=== PATIENT | male | born 1935 | race Caucasian/White ===

== ENCOUNTER 2016-02-20 12:21 | Inpatient (IN) | payer OTHER, MEDICAID ==
--- NOTE | 2016-02-20 12:36 | EDPHY ---
H & P HPI/ROS: CHIEF COMPLAINT: Unresponsive, hypoxemic Limitations: pt unable to provide any history HISTORY OF PRESENT ILLNESS: The patient is a 80 y/o male arriving emergently via EMS from [facility] after he became suddenly unresponsive and became hypoxemic en route. He has a history that includes diabetes, hypertension, and CAD and his facility paperwork indicates he is a DNR with comfort measures only. Per EMS, staff reported he was normal this morning but then became acutely unresponsive with a fever of 101.2F. EMS reports he was responsive to painful stimuli only en route. They placed an NPA and NRB to manage hypoxemia, but he desaturated and required BVM en route to maintain SpO2 95%. His systolic BP was around 75 during transport. Upon arrival, patient is breathing spontaneously and able to answer some yes/no questions. He denies pain anywhere. REVIEW OF SYSTEMS: Unobtainable secondary to patient condition. Source: EMS - Medical/Surgical History PMH: PMH includes: 1. Hypothyroidism 2. Hypertension 3. GERD 4. CAD - Plavix 5. Glaucoma 6. Ischemic heart disease 7. Peripheral vascular disease 8. Weakness with frequent falls 9. Anemia 10. Osteoarthritis 11. Diabetes type 2 12. TIA in 2011 13. Hyperlipidemia 14. Neuropathy MOST form shows DNR with comfort measures only. Prior medical records reviewed including admission 05/29/15 for lethargy and facility transfer paperwork. - Social History Additional Social History: Lives at [facility]. Originally from [place]. - Physical Exam Exam: General Appearance: Lethargic, pale Eyes: Pupils equal and round, no conjunctival injection ENT, Mouth: Mucous membranes dry Neck: Normal inspection Respiratory: coarse BS throughout anteriorly Cardiovascular: Regular rate and rhythm Gastrointestinal: Abdomen is soft and non-tender, multiple areas of ecchymosis over the lower abdomen Neurological: A&O to self only, nonfocal exam, PENA, follows some commands, diffusely weak, unable to assess CN Skin: Warm and dry Extremities: no erythema, right BKA Psychiatric: deferred Constitutional: Initial Vital Signs Temperature (C) 37.8 C 02/20/16 12:26 Heart Rate 80 02/20/16 12:26 Respiratory Rate 20 02/20/16 12:26 Blood Pressure 71/39 L 02/20/16 12:26 O2 Sat (%) 96 02/20/16 12:26 O2 Delivery Mode Non-Rebreather Mask O2 (L/minute) 15 Allergies/Adverse Reactions: No Known Allergies Allergy (Verified 12/22/15 17:53) Home Medications: Medication Instructions Recorded Acetaminophen [Tylenol 325mg (*)] 650 mg PO Q6H PRN 02/20/16 Aspirin [Aspirin 81mg (*)] 81 mg PO DAILY 02/20/16 Atorvastatin Calcium [Lipitor 10 10 mg PO HS 02/20/16 mg (*)] Benzocaine/Menthol 15/ [Cepacol 1 ea PO Q4H PRN 02/20/16 Lozenge] Bisacodyl [Dulcolax] 10 mg RC DAILY PRN 02/20/16 Brimonidine/Timolol [Combigan (*)] 1 drops EACHEYE BID 02/20/16 Cilostazol [Pletal (*)] 100 mg PO BID 02/20/16 Clopidogrel Bisulfate [Plavix (*)] 75 mg PO DAILY 02/20/16 Diclofenac Sodium [Voltaren Gel 1 jake TP BID PRN 02/20/16 (*)] Gabapentin [Neurontin 300 MG (*)] 300 mg PO HS 02/20/16 Herbals/Supplements -Info Only 1 ea PO DAILY 02/20/16 Insulin Glargine [Lantus 100 34 units SC DAILY@15 02/20/16 UNITS/ML (*)] Insulin Glargine [Lantus 100 38 units SC DAILY 02/20/16 UNITS/ML (*)] Latanoprost 0.005% [Xalatan 0.005% 1 drops EACHEYE HS 02/20/16 (*)] Levothyroxine [Synthroid 100 mcg 100 mcg PO DAILY06 02/20/16 (*)] Lisinopril [Zestril 5 mg (*)] 5 mg PO DAILY 02/20/16 Multivitamins [Multivitamin (*)] 1 each PO DAILY 02/20/16 Mik/Polymyx B Sulf/Dexameth 1 drops RTEYE HS 02/20/16 [Maxitrol Opht Drops (*)] Omeprazole [Prilosec 20 mg] 20 mg PO DAILY 02/20/16 Ondansetron Odt [Zofran Odt 4 mg 4 - 8 mg PO Q6H PRN 02/20/16 (*)] Simethicone [GAS-X] 80 - 160 mg PO QID PRN 02/20/16 Simethicone [GAS-X] 80 mg PO Q6H PRN 02/20/16 Tamsulosin HCl [Flomax 0.4 MG (*)] 0.4 mg PO HS 02/20/16 guaiFENesin/DEXTROMETHORPHAN 10 ml PO Q6 PRN 02/20/16 [Robitussin Dm Oral Liquid (*)] guaiFENesin/DEXTROMETHORPHAN 30 ml PO Q6H PRN 02/20/16 [Robitussin Dm Oral Liquid (*)] oxyCODONE IR [Oxycodone Ir (*)] 5 mg PO Q4H PRN 02/20/16 oxyCODONE IR [Oxycodone Ir (*)] 10 mg PO Q4H PRN 02/20/16 Medical Decision Making - Diagnostics EKG Interpretation: The 12 lead EKG was interpreted by myself. Sinus rhythm rate 80. See hard copy and/or "tracemaster" electronic copy for interpretation. Imaging: Study: Chest x-ray Indication: Hypoxemic, fever, altered mentation Results: Chest x-ray was obtained. The results of the study are right upper lobe infiltrate. Radiologist report pending. I viewed the images myself on the PACS system. ED Course/Re-evaluation: I met the patient on his arrival. He is obtunded but able to answer yes/no questions and able to tell me his name. Signed DNR form that states comfort measures only. I discussed this with the patient and he states that he would like IV fluids and IV antibiotics. He also states that he would be willing to a central line. He refuses intubation and CPR. Chest x-ray reveals a right upper lobe infiltrate consistent aspiration pneumonia. Occasional coughing on exam 1230: BP 57/42, HR 82, 99% on O2. 1233: Chest x-ray reviewed at bedside shows: right upper lobe pneumonia. 1233: Patient's paperwork shows he is a DNR with comfort measures only. I discussed patient's wishes for treatment. He says he does want antibiotics and medications to manage his blood pressure. He also agrees to a central line if needed. He does not want to be intubated. Case management involved and will attempt to contact next of kin. 2L IV NS, 650mg rectal Tylenol, 4.5gm IV Zosyn, and 750mg IV Levaquin ordered for fever and likely pneumonia. Will place central line if pressure does not improve. Labs sent including CBC, CHEM, PTPTT, lactate. 1304: Current vitals: 104/58, HR 76, SpO2 100% on supplemental O2. Lactic acid is normal. Creatinine is 4.0 - patient is in acute renal failure, most likely secondardy to hypotension and dehydration. Mental status has improved with IV fluids and fever reduction. Consulted with hospitalist service. Dr. Parmar accepts admission to ICU. 1311: Spoke with the patient's son via phone and informed him of patient's condition. 1316: Patient does not meet SIRS criteria. Initial vitals were: 57/42, HR 82, 99 % on NRB, afebrile. WBC is 5.84. In addition initial lactate is normal. Blood pressure has normalized with IV normal saline 2 L. However, he has sepsis clinically. 1333: RN informs me patient had episode of malodorous yellow diarrhea. A sample will be sent for stool culture. The pt is unable to tell me whether he has had diarrhea recently or not. No urinary sx; has not provided a urine sample yet. 1402: Reassessed patient. He is much better and is now talking in full sentences. He is on 2LPM O2 via nasal cannula with SpO2 of 94%. BP 97/44 1433: Patient's pressure has dropped to 80/41. Plan for PICC line, d/w Dr. Ruiz, will place PICC line shortly. Will continue to monitor for need of pressors. Patient's mentation has not changed from previous reevaluation. Repeat lactate ordered and additional 1L IV NS administered (total of 3 liters) . 1445: BP 86/47 1455: to IR for PICC line. d/w Dr. Napier, aware of change in pt status and possible need for pressors if hypotension persists. Repeat lactate 0.6. This patient utilized 45 minutes of critical care time exclusive of unbundled procedures. Differential Diagnosis: Differential diagnosis includes UTI, pyelonephritis, cholecystitis, influenza, cellulitis, intracranial hemorrhage, CVA, overdose. - Data Points Laboratory Results: Laboratory Results 02/20/16 12:30 02/20/16 12:30 Microbiology Results: MICROBIOLOGY 02/20/16 12:39 Urine,Clean Catch Urine Culture - Preliminary Medications Given: Discontinued Medications Acetaminophen (Tylenol Rectal) 650 mg TN EDNOW ONE Stop: 02/20/16 12:40 Last Admin: 02/20/16 13:27 Dose: 650 mg Sodium Chloride (Ns) 1,000 mls @ 0 mls/hr IV ONCE ONE PRN Reason: Wide Open Stop: 02/20/16 12:39 Last Admin: 02/20/16 12:40 Dose: 1,000 mls Sodium Chloride (Ns) 1,000 mls @ 0 mls/hr IV ONCE ONE PRN Reason: Wide Open Stop: 02/20/16 12:40 Last Admin: 02/20/16 12:40 Dose: 1,000 mls Levofloxacin/Dextrose (Levaquin 750 Mg (Premix)) 150 mls @ 100 mls/hr IV EDNOW ONE PRN Reason: Protocol Stop: 02/20/16 14:09 Last Admin: 02/20/16 13:52 Dose: 150 mls Piperacillin/Tazobactam/Dextrose (Zosyn (Premix)) 100 mls @ 200 mls/hr IV EDNOW ONE PRN Reason: Protocol Stop: 02/20/16 13:09 Last Admin: 02/20/16 13:15 Dose: 100 mls Sodium Chloride (Ns) 1,000 mls @ 0 mls/hr IV ONCE ONE PRN Reason: Wide Open Stop: 02/20/16 14:36 Last Admin: 02/20/16 14:44 Dose: 1,000 mls Vancomycin/Sodium Chloride (Vancomycin 1 Gm (Premix)) 250 mls @ 250 mls/hr IV ONCE ONE PRN Reason: Protocol Stop: 02/20/16 17:23 Last Admin: 02/20/16 17:14 Dose: 250 mls Departure - Departure Disposition: [facility] Clinical Impression: Pneumonia Qualifiers: Qualifier Code: (J69.0) Pneumonitis due to inhalation of food and vomit Acute renal failure Qualifiers: Qualifier Code: (N17.9) Acute kidney failure, unspecified Condition: Serious Report Scribed for: Laureen Awad Report Scribed by: Catherine Tello Date of Report: 02/20/16 Time of Report: 12:49 Physician Review and Approval Statement: 02/20/16 12:49 Portions of this note were transcribed by a medical technologist. I personally performed a history, physical exam, medical decision making, and confirmed accuracy of information the transcribed note.
[2016-02-20] MEDS ORDERED: NS 1,000 ML IV ONE ×3 (12:38→14:35)
[2016-02-20] MEDS ORDERED: ACETAMINOPHEN 650 MG SUPP PR ONE (12:39)
--- NOTE | 2016-02-20 12:39 | CPEKG ---
Heart Rate: 80 RR Interval: 750 P-R Interval: 180 QRSD Interval: 66 QT Interval: 392 QTC Interval: 453 P Dixie: 47 QRS Dixie: 14 T Wave Dixie: 85 EKG Severity - NORMAL ECG - EKG Impression: SINUS RHYTHM Electronically Signed By: Laureen Awad 20-Feb-2016 14:31:54
[2016-02-20] MEDS ORDERED: PIPERACILLIN/TAZO 4.5 GM/DEX 100 ML IV ONE (12:40)
[2016-02-20 12:45] LABS: % IMMATURE GRANULYOCYTES 0.5 % (0.0-1.1); ABSOLUTE IMMATURE GRANULOCYTES 0.03 10^3/uL (0.00-0.10); ADD DIFF? NO; ADD MORPH? NO; ADD SCAN? NO; ATYPICAL LYMPHOCYTE FLAG 20 (0-99); FRAGMENT RBC FLAG 0 (0-99); HEMATOCRIT 31.1 % (40.0-51.0); HEMOGLOBIN 10.4 g/dL (13.7-17.5); LEFT SHIFT FLG 0 (0-99); LIPEMIA HEMOLYSIS FLAG 80 (0-99); MEAN CELL HEMOGLOBIN 31.6 pg (27.9-34.1); MEAN CELL HEMOGLOBIN CONCENTR. 33.4 g/dL (32.4-36.7); MEAN CELL VOLUME 94.5 fL (81.5-99.8); MEAN PLATELET VOLUME 9.3 fL (8.7-11.7); PLATELET CLUMPS FLAG 20 (0-99); PLATELET COUNT 215 10^3/uL (150-400); RED BLOOD CELL COUNT 3.29 10^6/uL (4.40-6.38); RED CELL DISTRIBUTION WIDTH 12.4 % (11.5-15.2)
[2016-02-20 13:01] LABS: INR 1.18 (0.83-1.16)
[2016-02-20 13:02] LABS: APTT 36.2 SEC (23.0-38.0)
[2016-02-20 13:07] LABS: ANION GAP 13 mEq/L (8-16); BILIRUBIN,TOTAL 0.5 mg/dL (0.1-1.4); CALCIUM 7.9 mg/dL (8.5-10.4); CARBON DIOXIDE 18 mEq/l (22-31); CHLORIDE 108 mEq/L (97-110); GLOMERULAR FILTRATION RATE 15; GLUCOSE 97 mg/dL (70-100); POTASSIUM 5.7 mEq/L (3.5-5.2); SODIUM 139 mEq/L (134-144)
--- NOTE | 2016-02-20 13:14 | DX ---
PA and Lateral Chest X-Ray 1231 hours History: Unresponsive. Altered mental status. Possible sepsis Findings: Heart size and pulmonary vasculature are normal. There is peribronchial cuffing seen in t he perihilar region and prominence of perihilar interstitial markings. Patchy infiltrate is suspected right upper lobe. There is poor inspiration. Osseous structures are unchanged. There is dense sclero sis associated with the anterior right first rib stable in appearance. Impression: Prominence of perihilar interstitial markings and peribronchial cuffing. Findings are non specific but can be seen with bronchitis, reactive airway disease, or viral process. Possible superimposed patchy infiltrate right upper lobe. Rule out early pneumonia.
[2016-02-20] MEDS ORDERED: ALTEPLASE 2 MG VIAL IVP PRN (14:34)
[2016-02-20 14:41] LABS: ANION GAP 12 mEq/L (8-16); CALCIUM 7.1 mg/dL (8.5-10.4); CARBON DIOXIDE 16 mEq/l (22-31); CHLORIDE 111 mEq/L (97-110); CREATININE 3.6 mg/dL (0.7-1.3); GLOMERULAR FILTRATION RATE 16; GLUCOSE 108 mg/dL (70-100); POTASSIUM 4.8 mEq/L (3.5-5.2); SODIUM 139 mEq/L (134-144)
--- NOTE | 2016-02-20 15:52 | PDGENHP ---
History and Physical History and Physical: Chief Complaint: Altered mental status History of presenting illness: This is a 80 male with history of diabetes mellitus, hyperlipidemia, hypertension, peripheral vascular disease, and recent hospitalization for left calcaneal osteomyelitis who was brought to the emergency department by EMS after to be febrile and unresponsive at [facility] earlier this morning. Per ER report the patient was in his usual health this morning but became acutely unresponsive with a temperature of 101.2degrees. In route to the hospital he was noted to be hypoxemic. Patient began having diarrhea today which is new for him. He tells me he has had a cough for the past few days but denies any shortness of breath. Denies any problems with swallowing or choking on food. In the emergency department he was found to be hypotensive. He subsequently received 3 L of normal saline and appears to be mentating better than when he initially arrived. 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 PHYSICAL EXAM: 02/20/16 14:19 Heart Rate 72 Respiratory 18 Rate O2 Sat (%) 92 Temperature (C) 36.7 C Blood Pressure 81/43 L Mean Arterial 55 L Pressure (MAP) GENERAL: ill appearing, no acute distress HEENT: Head is normocephalic atraumatic, eyes are PERRLA, ears are normal appearing, mucous membranes are moist without lesions CARDIOVASCULAR: Regular rate and rhythm; normal S1 and S2 without murmurs, rubs , clicks, gallops; there is no JVD; there is no lower extremity edema PULMONARY: diminished breath sounds in bilateral bases without rales or rhonchi ; no respiratory distress ; no dullness to percussion ABDOMINAL/GASTROINTESTINAL: Soft, nontender, nondistended with normoactive bowel sounds. There is no guarding or rebound tenderness. GENITOURINARY: No Gooden in place EXTREMITIES: No clubbing, cyanosis, or edema, right BKA NEUROLOGIC: Cranial nerves 2-12 are grossly intact; face symmetric; moves all other extremities; speech is fluent; alert and oriented to person, place, and time SKIN: left heel with open wound as well as a nonblanching sacral pressure ulcer Diagnostics: 02/20/16 02/20/16 02/20/16 12:20 12:30 13:21 WBC 5.84 Hgb 10.4 L Hct 31.1 L Plt Count 215 PT 15.0 INR 1.18 H APTT 36.2 VBG Lactic Acid Sodium Potassium Chloride Carbon Dioxide Anion Gap BUN Creatinine Estimated GFR Glucose Calcium C. difficile Tox (PCR) NEGATIVE 02/20/16 02/20/16 14:15 14:47 WBC Hgb Hct Plt Count PT INR APTT VBG Lactic Acid 0.6 L Sodium 139 Potassium 4.8 Chloride 111 H Carbon Dioxide 16 L Anion Gap 12 BUN 81 H Creatinine 3.6 H Estimated GFR 16 Glucose 108 H Calcium 7.1 L C. difficile Tox (PCR) Imaging: I visualized and personally interpreted the chest x-ray: Impression: Prominence of perihilar interstitial markings and peribronchial cuffing. Findings are nonspecific but can be seen with bronchitis, reactive airway disease, or viral process. Possible superimposed patchy infiltrate right upper lobe. Rule out early pneumonia. 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 We will continue monitor for signs symptoms of severe sepsis or septic shock -will defer further antibiotics to Dr. Brito. Vancomycin 1gm iv ordered x 1 # diarrhea negative for C diff ?norovirus - continue to monitor - trial Imodium # acute kidney injury possibly pre renal given hypotension versus ATN versus other - hold nephrotoxins - renal ultrasound - urinalysis with urine lytes -maint ivf overnight -hold bp meds # left calcaneal ulcer with history of MRSA osteomyelitis and sacral decubitus both present on admission - wound care consult - infectious disease consult # possible sepsis in the setting of hypotension, fever, and history of MRSA osteomyelitis - patient was started on empiric Zosyn and levofloxacin in the emergency department. -will defer further antibiotics to Dr. Brito. Vancomycin 1gm iv ordered x 1 #HTN, chronic - will hold home blood pressure medications in the setting of hypotension #HLD, chronic -continue home management #PVD, chronic -continue home management #hypothyroidism, chronic -continue home management #BPH, chronic - will hold Flomax since it can contribute to hypotension #DM -cont home dose of lantus and monitor for hypoglycemia given ROBERT patient is high risk for VTE and will be treated with prophylactic subcu heparin while in the hospital patient requests to be DNR status
--- NOTE | 2016-02-20 15:55 | IR ---
Imaging Guided Peripherally Inserted Central Catheter History: Pneumonia, hypotension. Technique: Following informed consent, the right arm was prepped and draped in sterile fashion. All e lements of maximal sterile barrier technique including cap, mask, sterile gown, sterile gloves, large sterile sheet, hand hygiene, and 2% chlorhexidine for cutaneous antisepsis, followed. Ultrasound tra nsducer was placed in sterile sleeve and sterile coupling gel was used. Ultrasound evaluation of pote ntial access sites was performed. After successfully identifying a patent vessel of adequate size, 1% Xylocaine was used for local anesthetic. Ultrasound guidance was used to puncture the basilic vein with a 21-gauge needle. 0.018 measuring wire was passed centrally under fluoroscopic control. A skin geeta with scalpel blade was followed by removing the access needle. A 5.5 Chilean peel-away sheath wa s followed by a 5 Chilean double-lumen central catheter , trimmed to 43 cm length. The tip of the cat heter was positioned centrally and the guidewire removed. AP fluoroscopic spot image was obtained in inspiration. The catheter irrigated easily. The hub of the catheter was secured to the skin using a S tatLock adhesive device, and a sterile dressing was applied. Fluoroscopy time in minutes: 0.1 . Estimated exposure in mGy: 4.9 . Findings: The tip of the central catheter terminates at the junction of the superior vena cava and th e right atrium. Impression: 5 Chilean double lumen peripherally inserted central catheter is ready to use. - - - - - - - - - - - - - - - - - - - - - - - - - - - - - - - - - - - - - - - - - (Cross-cutting measures: Current medications were listed in the medical record, including all known prescriptions, [id number] medications, herbal medications, and nutritional supplements. The pat ient does not smoke. )
[2016-02-20] MEDS ORDERED: oxyCODONE IR 5 MG TAB PO PRN (16:11)
[2016-02-20] MEDS ORDERED: ACETAMINOPHEN 325 MG TAB PO PRN (16:11)
[2016-02-20] MEDS ORDERED: SIMETHICONE 80 MG TAB CHEW PO PRN ×2 (16:11)
[2016-02-20] MEDS ORDERED: D50W 25 GM/50 ML SYR IVP PRN (16:19)
[2016-02-20] MEDS ORDERED: VANCOMYCIN HCL/NORMAL SALINE 250 ML IV ONE (16:24)
[2016-02-20] MEDS ORDERED: NS 1,000 ML IV SCH (16:30)
[2016-02-20] MEDS: INSULIN LISPRO 100 UNIT/ML SC SCH (17:24)
--- NOTE | 2016-02-20 17:26 | WOCRNPDOC ---
PETRA Advanced Assessment Note - Skin Integrity Problem, Advanced Assess Left Lateral Heel Surgical Wound/Incision Dressing Type: Allevyn Life Dressing Description: Intact Exudate Amount: Scant Exudate Color: Reddish/Yellow Exudate Characteristic(s): Serosanguinous Integumentary Issue Intervention: Dressing Changed Anju Wound Tissue: Ecchymotic (SDTI noted in adjacent tissues), Macerated ( along wound margins) Anju Wound Swelling: Mild Wound Bed Color: Red Wound Bed Constitution: Smooth Tissue Site Measurement - Head-to-Toe Length X Width X Depth (cm): [id number] Skin Integrity Problem Comment: Patient is known to wound care, and was seen at outpatient clinic for this wound on 02/17. This was a diabetic ulcer which was surgically debrided back in December 2015, with subsequent wound vac placement. Vac was dc'd last month. Wound is presently smooth tissue, w/ no necrosis noted. Due to maceration along margins, I placed Aquacel Ag into wound bed, followed by a foam heel dressing. Left Medial Heel Pressure Injury Dressing Type: Allevyn Life Exudate Amount: None Exudate Characteristic(s): None Integumentary Issue Intervention: Dressing Changed Anju Wound Swelling: Mild Wound Bed Color: Purple Site Odor: None Site Measurement - Head-to-Toe Length X Width X Depth (cm): [id number] Pressure Injury Stage: Deep Tissue Injury (DTI) Pressure Injury Present on Admit: Yes (Present on admission, noted by nursing) Skin Integrity Problem Comment: Area of ecchymosis immediately adjacent to surgical wound on patient's lateral heel, consistent in appearance with suspected deep tissue injury. I assessed this patient on 02/17 at the wound healing center, and at that time there was no ecchymosis noted. Applied protective foam heel dressing to cover both this wound and the surgical wound adjacent to it. Off-loading heel boot applied. Right Medial Buttock Pressure Injury Dressing Type: Open to Air Exudate Amount: None Exudate Characteristic(s): None Integumentary Issue Intervention: Dressing Applied Anju Wound Tissue: Blanching, Intact Anju Wound Swelling: None Wound Bed Color: Purple Site Measurement - Head-to-Toe Length X Width X Depth (cm): [id number] Pressure Injury Stage: Deep Tissue Injury (DTI) Skin Integrity Problem Comment: Dark purple ecchymosis noted on patient's R upper medial buttock. While this location is not directly over a bony prominence , its appearance is consistent w/ a suspected deep tissue injury. Anuj-wound skin presently intact and blanching. Protective dressing applied, and patient off-loaded onto his L side. He is currently on a Sport bed, which is appropriate.
--- NOTE | 2016-02-20 17:27 | PCMIDPN ---
Assessment/Plan: # Sepsis: Unclear etiology, no associated leukocytosis. DDX 1) diarrhea, C diff already negative. Could consider norovirus, less likely food-borne illness such as Salmonella. 2) Urinary source with significant urine retention 3) Pneumonia but Chest x-ray unimpressive and patient is on his baseline O2 requirement although he has had some respiratory symptoms over the last couple days. 4) influenza since patient refused vaccination 5) bacteremia, PICC line removed 2 weeks ago and patient with chronic wound left heel although continues to improve --send influenza PCR nasal swab --send stool sample for culture and norovirus PCR --empirically cover with 1 dose of vancomycin for possible bacteremia --UA and culture as indicated (patient received antibiotics prior to collection) --patient already given 1 dose of vancomycin for possible bacteremia and 1 dose of levofloxacin which would cover for possible urinary source. Will await further information before additional coverage. Due to his renal function will follow vancomycin random levels. Vancomycin will be dosed every 48 hours therefore would not be due for another dose until 02/20. # acute renal failure likely related to sepsis plus urinary retention, renal dose antibiotics as above. 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 He is a 80 yo male with multiple medical problems including diabetes who recently had MRSA, finegoldia osteomyelitis left calcaneus with residual wound status post debridement 12/23/2015 and IV vancomycin through 02/03/2016 . Generally the wound has continued to heal and he is now no longer using a wound VAC. He was noted to have some pressure injury on the medial heel today. (The wound is more on the lateral portion of the heel.) Patient was suddenly found to be nonresponsive and febrile at [facility] today and was urgently transferred to [facility] ER . Initially patient was on non-rebreather with systolics in the 50s but O2 sats are adequate on 2 to 3 L supplementation. Labs demonstrated a normal white count but a creatinine of 3.6. Patient describes a couple days of cough and nasal congestion, some difficulty voiding today, no abdominal pain, and loose stools x1 day. In the emergency room he received a dose of Levaquin 750, Zosyn, and vancomycin 1 g. Myers was placed in the ICU and 600 cc of urine returned. Abdominal ultrasound was performed that shows a distended bladder but no hydronephrosis. Chest x-ray personally reviewed by me Patient refuses influenza vaccination Objective: Vital Signs Temp Pulse Resp BP Pulse Ox 36.6 C 71 14 106/92 H 98 02/20/16 15:30 02/20/16 16:00 02/20/16 16:00 02/20/16 16:00 02/20/16 16:00 Laboratory Results 02/20/16 14:15 02/19/16 02/20/16 02/21/16 05:59 05:59 05:59 Intake Total 3201 Output Total 600 Balance 2601 - Physical Exam General Appearance: alert, no apparent distress, obese, toxic EENT: pale conjunctiva, poor dentition, No thrush Respiratory: lungs clear Neck: supple Cardiac/Chest: regular rate, rhythm Extremities: other (Wound on the left heel is significantly smaller than my last exam a week or so ago, no surrounding erythema but there was a pressure injury on the right medial heel. No cellulitis. Right BKA), No pedal edema Abdomen: non-tender, soft, other (Liquid stool) Male Genitalia: myers, No scrotal edema Rectal: other ( Dark purple ecchymosis noted on patient's R upper medial buttock ) Skin: diaphoresis, pallor Neuro/Psych: alert, normal mood/affect, oriented x 3 - Line/s RUE PICC Lines: No drainage, No erythema - Time Spent With Patient Time Spent with Patient: greater than 35 minutes Time Spent with Patient: Greater than 35 minutes spent on this patients care, greater than 50% of time spent counseling, educating, and coordinating care regarding the above mentioned plan. ICD10 Worksheet Patient Problems: Problems Problem Status Diagnosed Acute renal failure Acute Pneumonia Acute Benign essential hypertension Active Diabetes mellitus type 2 Active Diabetic neuropathy Active Dyslipidemia Active Hypothyroidism Active Fever Acute MRSA (methicillin resistant Staphylococcus aureus) Acute 12/23/15 Muscle weakness Acute Severe anemia Acute
--- NOTE | 2016-02-20 17:32 | US ---
Renal Sonogram Clinical Indications: Evaluate for hydronephrosis. Findings: The right kidney measures 4.7 x 4.5 x 10.6 cm with 1.4 cm cortex. There is no hydronephros is. Left kidney measures 5.0 x 4.1 x 1.1 cm with a 1.8 cm cortex. There is no hydronephrosis. Prevoid bladder volume is 394. Postvoid residual was not performed. Ureteral jets were not visualized . Impression: No evidence of hydronephrosis. Moderately distended bladder. Ureteral jets were not visua lized.
[2016-02-20 18:41] LABS: COLOR YELLOW; LEUKOCYTE ESTERASE,URINE 3+ (NEGATIVE); NITRITE,URINE NEGATIVE (NEGATIVE)
[2016-02-20 19:02] LABS: BACTERIA TRACE /hpf (NONE SEEN); MUCUS TRACE /lpf (NONE-1+); WBC,URINE 50-182 /hpf (0-3); YEAST PRESENT /hpf (NONE SEEN)
[2016-02-20 19:15] LABS: ALBUMIN 2.6 g/dL (3.5-5.0); BILIRUBIN,TOTAL 0.4 mg/dL (0.1-1.4); BILIRUBIN-CONJUGATED 0.4 mg/dL (0.0-0.5); TOTAL PROTEIN 5.3 g/dL (6.3-8.2)
[2016-02-20] MEDS ORDERED: OSELTAMIVIR PHOSPHATE 75 MG CAP PO ONE (21:57)
[2016-02-20] MEDS: ATORVASTATIN CALCIUM 10 MG TAB PO SCH (22:50)
[2016-02-20] MEDS: GABAPENTIN 300 MG CAP PO SCH (22:50)
[2016-02-20] MEDS: OSELTAMIVIR 6 MG/ML UDSYR PO SCH (22:50)
[2016-02-20] MEDS: HEPARIN 5,000 UNIT/0.5 ML SYR SC SCH (22:50)
[2016-02-20] MEDS: CILOSTAZOL 100 MG TAB PO SCH (22:50)
[2016-02-20] MEDS: BRIMONIDINE/TIMOLOL 5 ML OPHT.BTL EACHEYE SCH (22:51)
[2016-02-20] MEDS: LATANOPROST 0.005% 2.5 ML OPHT DROPS EACHEYE SCH (22:51)
[2016-02-20] MEDS: NEO/POLYMYX B SULF/DEXAMETH 5 ML OPHT.BTL RTEYE SCH (22:51)
[2016-02-21 05:05] LABS: % IMMATURE GRANULYOCYTES 0.7 % (0.0-1.1); ABSOLUTE IMMATURE GRANULOCYTES 0.04 10^3/uL (0.00-0.10); ADD DIFF? NO; ADD MORPH? NO; ADD SCAN? NO; ATYPICAL LYMPHOCYTE FLAG 30 (0-99); FRAGMENT RBC FLAG 0 (0-99); HEMOGLOBIN 8.7 g/dL (13.7-17.5); LEFT SHIFT FLG 0 (0-99); LIPEMIA HEMOLYSIS FLAG 80 (0-99); MEAN CELL HEMOGLOBIN 32.1 pg (27.9-34.1); MEAN CELL HEMOGLOBIN CONCENTR. 33.5 g/dL (32.4-36.7); MEAN CELL VOLUME 95.9 fL (81.5-99.8); MEAN PLATELET VOLUME 9.2 fL (8.7-11.7); PLATELET CLUMPS FLAG 0 (0-99); PLATELET COUNT 162 10^3/uL (150-400); RED BLOOD CELL COUNT 2.71 10^6/uL (4.40-6.38); RED CELL DISTRIBUTION WIDTH 12.4 % (11.5-15.2)
[2016-02-21 05:34] LABS: ANION GAP 11 mEq/L (8-16); CALCIUM 7.3 mg/dL (8.5-10.4); CARBON DIOXIDE 17 mEq/l (22-31); CHLORIDE 117 mEq/L (97-110); CREATININE 2.6 mg/dL (0.7-1.3); GLOMERULAR FILTRATION RATE 24; GLUCOSE 84 mg/dL (70-100); POTASSIUM 4.4 mEq/L (3.5-5.2); SODIUM 145 mEq/L (134-144)
[2016-02-21] MEDS: LEVOTHYROXINE 100 MCG TAB PO SCH (06:39)
[2016-02-21] MEDS: HEPARIN 5,000 UNIT/0.5 ML SYR SC SCH ×3 (06:39→20:55)
[2016-02-21] MEDS: INSULIN LISPRO 100 UNIT/ML SC SCH ×3 (08:46→18:25)
[2016-02-21] MEDS: CLOPIDOGREL BISULFATE 75 MG TAB PO SCH (08:51)
[2016-02-21] MEDS: ASPIRIN 81 MG CHEWABLE TAB PO SCH (08:51)
[2016-02-21] MEDS: CILOSTAZOL 100 MG TAB PO SCH ×2 (08:51→20:55)
[2016-02-21] MEDS: MULTIVITAMINS 1 EACH TAB PO SCH (08:51)
[2016-02-21] MEDS: PANTOPRAZOLE SODIUM 40 MG TAB PO SCH (08:51)
[2016-02-21] MEDS: BRIMONIDINE/TIMOLOL 5 ML OPHT.BTL EACHEYE SCH ×2 (08:52→20:54)
[2016-02-21] MEDS ORDERED: NON-FORMULARY NEW DRUG (Omeprazole [Prilosec 20 Mg] 20 MG) PO SCH (09:00)
[2016-02-21] MEDS ORDERED: INSULIN GLARGINE 100 UNITS/ML SYRINGE SC SCH ×3 (09:00→15:00)
--- NOTE | 2016-02-21 09:14 | PCMIDPN ---
Assessment/Plan: Assessment/Plan: 1. Sepsis secondary to Influenza A: -On droplet precautions -Started on Tamiflu renally dosed yesterday -Other: blood cx in progress, pending - will send off urine given quite abnormal, understanding that the specimen from yesterday was likely collected in presence of urinary retention -will check random vanco and given another dose if levels are low, until blood cx are resulted. -Continue therapy 2. Recent MRSA left heel osteomyelitis: -s/p prolonged course of Vancomycine that ended on 02/03/16. -Continue contact precautions. -wound care Meds tamiflu 30mg daily- 02/20/16 s/p vanco x 1 02/20/16 s/p levaquin x 1 - 02/20/16 Subjective: Afebrile. Remains in icu. awake. some cough and nasal drainage. denies sammie sob. Denies abd pain. has c/o diarrhea. Objective: Vital Signs Temp Pulse Resp BP Pulse Ox 37 C 74 20 122/49 H 97 02/21/16 07:47 02/21/16 07:47 02/21/16 07:47 02/21/16 07:47 02/21/16 07:47 Laboratory Results 02/21/16 04:50 02/21/16 04:50 02/20/16 02/21/16 02/22/16 05:59 05:59 05:59 Intake Total 5301 Output Total 1800 Balance 3501 - Physical Exam General Appearance: alert, no apparent distress Respiratory: lungs clear Cardiac/Chest: regular rate, rhythm Extremities: other (RIght bka, left heels with open wound, minimal slough. no surrounding erythema. not boggy at edges. ), No swelling Abdomen: normal bowel sounds, non-tender, soft, No distended Pelvic Exam: myers Skin: No erythema ICD10 Worksheet Patient Problems: Problems Problem Status Diagnosed Acute renal failure Acute Pneumonia Acute Benign essential hypertension Active Diabetes mellitus type 2 Active Diabetic neuropathy Active Dyslipidemia Active Hypothyroidism Active Fever Acute MRSA (methicillin resistant Staphylococcus aureus) Acute 12/23/15 Muscle weakness Acute Severe anemia Acute
[2016-02-21] MEDS ORDERED: VANCOMYCIN 1.25 GM in D5W 250 ML IV ONE (11:30)
[2016-02-21] MEDS ORDERED: D50W 25 GM/50 ML SYR IVP PRN (13:54)
[2016-02-21] MEDS ORDERED: 1/2 NS 1,000 ML IV SCH (14:00)
--- NOTE | 2016-02-21 14:08 | HOSPPROG ---
Hospitalist Progress Note Assessment/Plan: This 80-year-old male with multiple medical problems with hospitalization in December for left calcaneal MRSA osteomyelitis presenting with: # acute encephalopathy - mentation appears to be improving now that he is volume resuscitated. # possible sepsis in the setting of hypotension, fever, and history of MRSA osteomyelitis. GPC's on 1/2 BCx's. -patient was started on empiric Zosyn and levofloxacin in the emergency department. -cont Vancomycin per ID recs # influenza A - cont renally dosed Tamiflu, supportive care # diarrhea negative for C diff ?norovirus - continue to monitor - trial Imodium # acute kidney injury possibly pre renal given hypotension versus ATN, FeNa 1.5 % - Cr down to 2.6 from 4.0 on arrival. -hold nephrotoxins -no hydro on renal ultrasound -cont maint ivf overnight -hold bp meds #DM - some hypoglycemia on home lantus dose, given D50 -decrease lantus dose, cont dose adjusted bolus insulin ac/hs # left calcaneal ulcer with history of MRSA osteomyelitis and sacral decubitus both present on admission - wound care consult - infectious disease consult #HTN, chronic - will hold home blood pressure medications in the setting of hypotension #HLD, chronic -continue home management #PVD, chronic -continue home management #hypothyroidism, chronic -continue home management #BPH, chronic - will hold Flomax since it can contribute to hypotension patient is high risk for VTE and will be treated with prophylactic subcu heparin while in the hospital Subjective: Pt feels better. Denies pain, no complaints other than feeling thirsty. No fevers. Objective: Vital Signs Temp Pulse Resp BP Pulse Ox 36.8 C 71 21 H 118/56 L 99 02/21/16 12:00 02/21/16 12:00 02/21/16 12:00 02/21/16 12:00 02/21/16 12:00 Laboratory Results 02/21/16 04:50 02/21/16 04:50 02/20/16 02/21/16 02/22/16 05:59 05:59 05:59 Intake Total 5301 Output Total 1800 Balance 3501 PT 15.0 SEC (12.0-15.0) 02/20/16 12:20 INR 1.18 (0.83-1.16) H 02/20/16 12:20 - Physical Exam Constitutional: no apparent distress Eyes: PERRL Ears, Nose, Mouth, Throat: moist mucous membranes Cardiovascular: regular rate and rhythym Respiratory: no respiratory distress Gastrointestinal: normoactive bowel sounds, soft, non-tender abdomen Skin: warm Psychiatric: interacting appropriately ICD10 Worksheet Patient Problems: Problems Problem Status Diagnosed Acute renal failure Acute Pneumonia Acute Benign essential hypertension Active Diabetes mellitus type 2 Active Diabetic neuropathy Active Dyslipidemia Active Hypothyroidism Active Fever Acute MRSA (methicillin resistant Staphylococcus aureus) Acute 12/23/15 Muscle weakness Acute Severe anemia Acute
[2016-02-21] MEDS: GABAPENTIN 300 MG CAP PO SCH (20:55)
[2016-02-21] MEDS: LATANOPROST 0.005% 2.5 ML OPHT DROPS EACHEYE SCH (20:55)
[2016-02-21] MEDS: NEO/POLYMYX B SULF/DEXAMETH 5 ML OPHT.BTL RTEYE SCH (20:55)
[2016-02-21] MEDS: ATORVASTATIN CALCIUM 10 MG TAB PO SCH (20:59)
[2016-02-21] MEDS: OSELTAMIVIR 6 MG/ML UDSYR PO SCH (20:59)
[2016-02-22] MEDS: LEVOTHYROXINE 100 MCG TAB PO SCH (06:35)
[2016-02-22] MEDS: HEPARIN 5,000 UNIT/0.5 ML SYR SC SCH ×3 (06:35→20:45)
[2016-02-22 07:11] LABS: % IMMATURE GRANULYOCYTES 0.5 % (0.0-1.1); ABSOLUTE IMMATURE GRANULOCYTES 0.03 10^3/uL (0.00-0.10); ADD DIFF? NO; ADD MORPH? NO; ADD SCAN? NO; ATYPICAL LYMPHOCYTE FLAG 50 (0-99); FRAGMENT RBC FLAG 0 (0-99); HEMATOCRIT 26.8 % (40.0-51.0); HEMOGLOBIN 8.8 g/dL (13.7-17.5); LEFT SHIFT FLG 0 (0-99); LIPEMIA HEMOLYSIS FLAG 80 (0-99); MEAN CELL HEMOGLOBIN CONCENTR. 32.8 g/dL (32.4-36.7); MEAN CELL VOLUME 94.4 fL (81.5-99.8); MEAN PLATELET VOLUME 9.1 fL (8.7-11.7); PLATELET CLUMPS FLAG 20 (0-99); PLATELET COUNT 171 10^3/uL (150-400); RED BLOOD CELL COUNT 2.84 10^6/uL (4.40-6.38); RED CELL DISTRIBUTION WIDTH 12.4 % (11.5-15.2)
[2016-02-22 07:26] LABS: ANION GAP 9 mEq/L (8-16); CALCIUM 7.7 mg/dL (8.5-10.4); CARBON DIOXIDE 19 mEq/l (22-31); CHLORIDE 117 mEq/L (97-110); CREATININE 1.6 mg/dL (0.7-1.3); GLOMERULAR FILTRATION RATE 42; GLUCOSE 41 mg/dL (70-100); SODIUM 145 mEq/L (134-144)
[2016-02-22] MEDS ORDERED: INSULIN GLARGINE 100 UNITS/ML SYRINGE SC SCH ×2 (08:40→09:00)
--- NOTE | 2016-02-22 08:43 | HOSPPROG ---
Hospitalist Progress Note Assessment/Plan: This 80-year-old male with multiple medical problems with hospitalization in December for left calcaneal MRSA osteomyelitis presenting with: # acute encephalopathy - mentation appears to be improving now that he is volume resuscitated. # possible sepsis unlikely. BCxs growing CoNS, likely contaminant. Vanco stopped per ID. # influenza A - cont renally dosed Tamiflu (dose increased with improved renal fxn), cont supportive care # diarrhea negative for C diff ?norovirus - continue to monitor - trial Imodium # acute kidney injury possibly pre renal given hypotension versus ATN, FeNa 1.5 % - Cr down to 1.4 from 4.0 on arrival. -hold nephrotoxins -no hydro on renal ultrasound -cont maint ivf overnight -hold bp meds # hypernatremia / hyperchloremia - change to D5W, recheck bmp this afternoon #DM - hypoglycemic again this am after reduction of lantus doses -further decrease lantus dose, cont dose adjusted bolus insulin ac/hs # left calcaneal ulcer with history of MRSA osteomyelitis and sacral decubitus both present on admission -completed prolonged course of vanco #HTN, chronic - will hold home blood pressure medications in the setting of hypotension #HLD, chronic -continue home management #PVD, chronic -continue home management #hypothyroidism, chronic -continue home management #BPH, chronic - will hold Flomax since it can contribute to hypotension patient is high risk for VTE and will be treated with prophylactic subcu heparin while in the hospital Subjective: Pt feels ok, but a bit symptomatic this am with low bg. Appetite is improved. No fevers. No CP or SOB Objective: Vital Signs Temp Pulse Resp BP Pulse Ox 36.7 C 88 16 181/79 H 92 02/22/16 07:31 02/22/16 07:31 02/22/16 07:31 02/22/16 07:31 02/22/16 07:31 Laboratory Results 02/22/16 06:30 02/22/16 06:30 02/21/16 02/22/16 02/23/16 05:59 05:59 05:59 Intake Total 5301 3142 Output Total 1800 2850 Balance 3501 292 PT 15.0 SEC (12.0-15.0) 02/20/16 12:20 INR 1.18 (0.83-1.16) H 02/20/16 12:20 - Physical Exam Constitutional: no apparent distress Eyes: PERRL Ears, Nose, Mouth, Throat: moist mucous membranes Cardiovascular: regular rate and rhythym Respiratory: no respiratory distress, clear to auscultation Gastrointestinal: normoactive bowel sounds, soft, non-tender abdomen Skin: warm Neurologic: AAOx3 Psychiatric: interacting appropriately ICD10 Worksheet Patient Problems: Problems Problem Status Diagnosed Acute renal failure Acute Pneumonia Acute Benign essential hypertension Active Diabetes mellitus type 2 Active Diabetic neuropathy Active Dyslipidemia Active Hypothyroidism Active Fever Acute MRSA (methicillin resistant Staphylococcus aureus) Acute 12/23/15 Muscle weakness Acute Severe anemia Acute
[2016-02-22] MEDS ORDERED: D5W 1,000 ML IV SCH (08:45)
[2016-02-22] MEDS: INSULIN LISPRO 100 UNIT/ML SC SCH ×3 (09:03→17:09)
[2016-02-22] MEDS: MULTIVITAMINS 1 EACH TAB PO SCH (09:20)
[2016-02-22] MEDS: CLOPIDOGREL BISULFATE 75 MG TAB PO SCH (09:20)
[2016-02-22] MEDS: ASPIRIN 81 MG CHEWABLE TAB PO SCH (09:20)
[2016-02-22] MEDS: PANTOPRAZOLE SODIUM 40 MG TAB PO SCH (09:20)
[2016-02-22] MEDS: BRIMONIDINE/TIMOLOL 5 ML OPHT.BTL EACHEYE SCH ×2 (09:24→20:46)
[2016-02-22] MEDS ORDERED: VANCOMYCIN 1.25 GM in D5W 250 ML IV ONE (09:30)
[2016-02-22] MEDS: INSULIN GLARGINE 100 UNITS/ML SYRINGE SC SCH (10:17)
[2016-02-22] MEDS: OSELTAMIVIR 6 MG/ML UDSYR PO SCH ×2 (11:30→17:59)
[2016-02-22] MEDS: CILOSTAZOL 100 MG TAB PO SCH ×2 (13:09→20:44)
--- NOTE | 2016-02-22 15:26 | PCMIDPN ---
Assessment/Plan: Assessment/Plan: 1. Sepsis secondary to Influenza A: -On droplet precautions -On Tamiflu renally dosed - continue droplet precautions. -Continue therapy 2. CoNs in blood cx: - 1 out of 2 in both set--likely skin contaminant -picc line that is in place is from this admit. -s/p vanco --given empirically while waiting for ID on GPC's. No further vanco at this point. 3. Recent MRSA left heel osteomyelitis: -s/p prolonged course of Vancomycin that ended on 02/03/16. -Continue contact precautions. -wound care 4. Urine cx with Citrobacter: - low colony count-1999. Colonized. No need for treatment Meds tamiflu 30mg daily- 02/20/16---changed to q12 due to improved renal fx s/p vanco x 1 ---02/20/16, 02/21/16, 02/22/16 s/p levaquin x 1 - 02/20/16 Subjective: afebrile. breathing is better. less cough. denies abd pain. loose stool but better. Objective: Vital Signs Temp Pulse Resp BP Pulse Ox 36.7 C 75 14 174/88 H 98 02/22/16 12:00 02/22/16 12:00 02/22/16 12:00 02/22/16 12:00 02/22/16 12:00 Microbiology 02/20/16 13:21 Stool Culture - Final Stool Laboratory Results 02/22/16 06:30 02/22/16 06:30 02/21/16 02/22/16 02/23/16 05:59 05:59 05:59 Intake Total 5301 3142 Output Total 1800 2850 Balance 3501 292 - Physical Exam General Appearance: alert, no apparent distress Respiratory: lungs clear Cardiac/Chest: regular rate, rhythm Extremities: other (right bka), No swelling Abdomen: normal bowel sounds, non-tender, soft, No distended Skin: No rash ICD10 Worksheet Patient Problems: Problems Problem Status Diagnosed Acute renal failure Acute Pneumonia Acute Benign essential hypertension Active Diabetes mellitus type 2 Active Diabetic neuropathy Active Dyslipidemia Active Hypothyroidism Active Fever Acute MRSA (methicillin resistant Staphylococcus aureus) Acute 12/23/15 Muscle weakness Acute Severe anemia Acute
[2016-02-22 17:23] LABS: ANION GAP 10 mEq/L (8-16); CALCIUM 7.5 mg/dL (8.5-10.4); CARBON DIOXIDE 19 mEq/l (22-31); CHLORIDE 114 mEq/L (97-110); CREATININE 1.4 mg/dL (0.7-1.3); GLOMERULAR FILTRATION RATE 49; GLUCOSE 139 mg/dL (70-100); POTASSIUM 4.2 mEq/L (3.5-5.2); SODIUM 143 mEq/L (134-144)
[2016-02-22] MEDS: 1/2 NS 1,000 ML IV SCH (18:25)
[2016-02-22] MEDS: ATORVASTATIN CALCIUM 10 MG TAB PO SCH (20:44)
[2016-02-22] MEDS: GABAPENTIN 300 MG CAP PO SCH (20:45)
[2016-02-22] MEDS: LATANOPROST 0.005% 2.5 ML OPHT DROPS EACHEYE SCH (20:46)
[2016-02-22] MEDS: NEO/POLYMYX B SULF/DEXAMETH 5 ML OPHT.BTL RTEYE SCH (20:46)
[2016-02-23 04:37] LABS: HEMOGLOBIN A1C 6.7 % (4.0-6.0)
[2016-02-23 05:08] LABS: ANION GAP 8 mEq/L (8-16); CALCIUM 7.7 mg/dL (8.5-10.4); CARBON DIOXIDE 22 mEq/l (22-31); CHLORIDE 115 mEq/L (97-110); CREATININE 1.2 mg/dL (0.7-1.3); GLOMERULAR FILTRATION RATE 59; GLUCOSE 91 mg/dL (70-100); POTASSIUM 4.4 mEq/L (3.5-5.2); SODIUM 145 mEq/L (134-144)
[2016-02-23] MEDS ORDERED: guaiFENesin/CODEINE PHOS 10 ML UDCUP PO PRN (05:10)
[2016-02-23] MEDS: HEPARIN 5,000 UNIT/0.5 ML SYR SC SCH ×2 (05:48→14:55)
[2016-02-23] MEDS: LEVOTHYROXINE 100 MCG TAB PO SCH (05:49)
[2016-02-23] MEDS: 1/2 NS 1,000 ML IV SCH (06:49)
[2016-02-23 08:09] VITALS: RESP 20; O2SAT 95
--- NOTE | 2016-02-23 08:31 | PDIAF ---
- Diagnosis Diagnosis: Influenza Code Status: Full Code - Medication Management Discharge Medications: Medications to Continue on Transfer Acetaminophen [Tylenol 325mg (*)] 650 mg PO Q6H PRN 02/20/16 [Last Taken Unknown ] Aspirin [Aspirin 81mg (*)] 81 mg PO DAILY 02/20/16 [Last Taken Unknown] Atorvastatin Calcium [Lipitor 10 mg (*)] 10 mg PO HS 02/20/16 [Last Taken Unknown] Benzocaine/Menthol 15/4 [Cepacol Lozenge] 1 ea PO Q4H PRN 02/20/16 [Last Taken Unknown] Bisacodyl [Dulcolax] 10 mg RC DAILY PRN 02/20/16 [Last Taken Unknown] Brimonidine/Timolol [Combigan (*)] 1 drops EACHEYE BID 02/20/16 [Last Taken Unknown] Cilostazol [Pletal (*)] 100 mg PO BID 02/20/16 [Last Taken Unknown] Clopidogrel Bisulfate [Plavix (*)] 75 mg PO DAILY 02/20/16 [Last Taken Unknown] Diclofenac Sodium [Voltaren Gel (*)] 1 jake TP BID PRN 02/20/16 [Last Taken Unknown] Gabapentin [Neurontin 300 MG (*)] 300 mg PO HS 02/20/16 [Last Taken Unknown] Herbals/Supplements -Info Only 1 ea PO DAILY 02/20/16 [Last Taken Unknown] Latanoprost 0.005% [Xalatan 0.005% (*)] 1 drops EACHEYE HS 02/20/16 [Last Taken Unknown] Levothyroxine [Synthroid 100 mcg (*)] 100 mcg PO DAILY06 02/20/16 [Last Taken Unknown] Lisinopril [Zestril 5 mg (*)] 5 mg PO DAILY 02/20/16 [Last Taken Unknown] Multivitamins [Multivitamin (*)] 1 each PO DAILY 02/20/16 [Last Taken Unknown] Mik/Polymyx B Sulf/Dexameth [Maxitrol Opht Drops (*)] 1 drops RTEYE HS 02/20/16 [Last Taken Unknown] Omeprazole [Prilosec 20 mg] 20 mg PO DAILY 02/20/16 [Last Taken Unknown] Ondansetron Odt [Zofran Odt 4 mg (*)] 4 - 8 mg PO Q6H PRN 02/20/16 [Last Taken Unknown] Simethicone [GAS-X] 80 - 160 mg PO QID PRN 02/20/16 [Last Taken Unknown] Simethicone [GAS-X] 80 mg PO Q6H PRN 02/20/16 [Last Taken Unknown] Tamsulosin HCl [Flomax 0.4 MG (*)] 0.4 mg PO HS 02/20/16 [Last Taken Unknown] guaiFENesin/DEXTROMETHORPHAN [Robitussin Dm Oral Liquid (*)] 10 ml PO Q6 PRN 07/31 [Last Taken Unknown] guaiFENesin/DEXTROMETHORPHAN [Robitussin Dm Oral Liquid (*)] 30 ml PO Q6H PRN [Last Taken Unknown] oxyCODONE IR [Oxycodone Ir (*)] 5 mg PO Q4H PRN 02/20/16 [Last Taken Unknown] Insulin Glargine [Lantus 100 UNITS/ML (*)] 12 units SC DAILY #0 ml 02/23/16 [ Last Taken Unknown] Insulin Glargine [Lantus 100 UNITS/ML (*)] 12 units SC DAILY@15 #0 ml 02/23/16 [ Last Taken Unknown] Oseltamivir Phosphate [Tamiflu Oral Suspension] 30 mg PO BIDMEAL #4 ml 02/23/16 [Last Taken Unknown] Discharge Medications: Refer to the Discharge Home Medication list for PRN reason. PICC Care - Routine: N/A - Orders Services needed: Registered Nurse, Physical Therapy, Occupational Therapy Diet Recommendation: ADA 2000 consistent carb Activity/Weight Bearing Restrictions: As tolerated Additional: Low blood sugars in the hospital, required significant decrease in insulin dose. May need to up-titrate. - Labs/Radiology BMP Date: 02/25/16 - Follow Up Care Current Providers and Referrals: NONE *PRIMARY CARE P,. [Primary Care Provider] - As per Instructions
[2016-02-23] MEDS: INSULIN LISPRO 100 UNIT/ML SC SCH ×2 (08:46→14:39)
[2016-02-23] MEDS ORDERED: LISINOPRIL 5 MG TAB PO SCH (09:00)
[2016-02-23] MEDS: ASPIRIN 81 MG CHEWABLE TAB PO SCH (09:23)
[2016-02-23] MEDS: OSELTAMIVIR 6 MG/ML UDSYR PO SCH (09:23)
[2016-02-23] MEDS: MULTIVITAMINS 1 EACH TAB PO SCH (09:23)
[2016-02-23] MEDS: CILOSTAZOL 100 MG TAB PO SCH (09:23)
[2016-02-23] MEDS: PANTOPRAZOLE SODIUM 40 MG TAB PO SCH (09:23)
[2016-02-23] MEDS: CLOPIDOGREL BISULFATE 75 MG TAB PO SCH (09:23)
[2016-02-23] MEDS: BRIMONIDINE/TIMOLOL 5 ML OPHT.BTL EACHEYE SCH (09:26)
[2016-02-23] MEDS: INSULIN GLARGINE 100 UNITS/ML SYRINGE SC SCH (09:26)
[2016-02-23 11:09] VITALS: BP 143/85; PULSE 73; TEMP 97.9
--- NOTE | 2016-02-23 21:55 | GDS ---
[f rep st] DISCHARGE SUMMARY DISCHARGE DIAGNOSES: 1. Influenza A. 2. Acute kidney injury, resolved. 3. Acute encephalopathy, resolved. 4. Diabetes mellitus. 5. Left calcaneal ulcer. 6. History of methicillin-resistant Staphylococcus aureus osteomyelitis status post prolonged course of vancomycin. 7. Hypertension. CONSULTANTS: Infectious Disease, Dr. Srinivas Alexander. HISTORY: For details please see the dictated history and physical dated February [address] Didier prince In brief, the patient is a 80-year-old male with a history of diabetes, hypertension and peripher al vascular disease, with a recent hospitalization for left calcaneal osteomyelitis. He came to the Emergency Department after being found febrile and unresponsive at [facility]. He was admitted to [facility] for further evaluation. HOSPITAL COURSE: Given his presenting symptoms of fever and hypotension, sepsis was considered. He was volume resuscitated and his influenza swab was positive. He was started on renally-dosed Tamiflu , as he presented with acute kidney injury, which was likely prerenal. His creatinine has normalized at the time of discharge. He had a normal renal ultrasound. He initially had diarrhea, which was C lostridium difficile negative and this resolved. Given an initial concern for possible sepsis, he wa s started empirically on Zosyn and Levaquin. Vancomycin was ordered when his initial set of blood cu ltures revealed gram-positive cocci. He ultimately grew coagulase-negative Staphylococcus and Staphy lococcus epidermides in his preliminary blood cultures. Repeat blood cultures on February 21 remaine d negative to date. His urine culture grew Citrobacter with a very low colony count of just 2000 and he had no significant urinary symptoms. His condition improved and antibiotics were discontinued. DISPOSITION: [facility]. FOLLOWUP: Primary care physician as needed. DISCHARGE MEDICATIONS: Please see [id number] for complete updated outpatient medication list. New medications on discharge include Tamiflu 30 mg p.o. b.i.d. (#4, no refills) to complete 2 more da ys for a total of a 5-day treatment course. Changed medications: The patient required much lower insulin doses during this hospitalization and h ad low blood sugars requiring decreased Lantus doses. On the day of discharge, he received just 12 u nits of Lantus during the day and he is discharged home on a lower dose of 12 units b.i.d. This may need to be up-titrated as his appetite improves. /[id number]/MODL
== END 2016-02-23 15:44 | DRG 193 ==
LOC: EDUNIT# → F2N 15:27 → F3E 02-22 02:14
PROVIDERS: ADMIT Family Medicine; ATTEND Family Medicine
PROC: 02HV33Z Insertion of Infusion Device into Superior Vena Cava, Percutaneous Approach (ICD-10-PCS; principal; 2016-02-20)
DX: J10.1 Influenza due to other identified influenza virus with other respiratory manifestations (principal); G93.49 Other encephalopathy; N17.9 Acute kidney failure, unspecified; E11.9 Type 2 diabetes mellitus without complications; I10 Essential (primary) hypertension; I25.10 Atherosclerotic heart disease of native coronary artery without angina pectoris; E03.9 Hypothyroidism, unspecified; K21.9 Gastro-esophageal reflux disease without esophagitis; H40.9 Unspecified glaucoma; I73.9 Peripheral vascular disease, unspecified; R29.6 Repeated falls; D64.9 Anemia, unspecified; E78.5 Hyperlipidemia, unspecified; L89.629 Pressure ulcer of left heel, unspecified stage; N40.0 Benign prostatic hyperplasia without lower urinary tract symptoms; Z66 Do not resuscitate; Z51.5 Encounter for palliative care; Z89.511 Acquired absence of right leg below knee; Z86.14 Personal history of Methicillin resistant Staphylococcus aureus infection; Z86.73 Personal history of transient ischemic attack (TIA), and cerebral infarction without residual deficits
CPT/HCPCS: 96365; 96366; 97162-GP; 97166-GO; 97530-GO; 97530-GP; C1751; G8978-GP-CM; G8979-GP-CK; G8987-GO-CL; G8988-GO-CL; J1815; J1956; J2543; J3370

== ENCOUNTER → 2016-05-25 | Outpatient (CLI) | payer OTHER, MEDICAID ==
[~2016-05-25] MED LIST: GADOBUTROL 10 ML VIAL IVP ONE
[2016-05-25 14:01] LABS: CREATININE 1.9 mg/dL (0.7-1.3)
== END ==
LOC: FIMAGING 12:58
PROVIDERS: ATTEND Radiology Diagnostic Radiology
DX: M86.172 Other acute osteomyelitis, left ankle and foot (principal)
CPT/HCPCS: 73723; A9585

== ENCOUNTER 2016-06-04 11:32 | Inpatient (IN) | payer OTHER, MEDICAID ==
[~2016-06-04 11:32] MED LIST changes: +BUPIVACAINE 0.5% 30 ML SDV ONE; -GADOBUTROL 10 ML VIAL IVP ONE
[2016-06-04] MEDS ORDERED: ROCURONIUM 50 MG/5 ML VIAL ONE (12:38)
[2016-06-04] MEDS ORDERED: fentaNYL 250 MCG/5 ML INJ ONE (12:39)
[2016-06-04] MEDS ORDERED: PROPOFOL 200 MG/20 ML VIAL ONE (12:39)
[2016-06-04 12:48] LABS: ANION GAP 10 mEq/L (8-16); CALCIUM 8.8 mg/dL (8.5-10.4); CARBON DIOXIDE 21 mEq/l (22-31); CHLORIDE 109 mEq/L (97-110); CREATININE 1.7 mg/dL (0.7-1.3); GLOMERULAR FILTRATION RATE 39; GLUCOSE 178 mg/dL (70-100); POTASSIUM 5.1 mEq/L (3.5-5.2); SODIUM 140 mEq/L (134-144)
[2016-06-04] MEDS ORDERED: LIDOCAINE 1% 5 ML SDV ID PRN (12:53)
[2016-06-04] MEDS ORDERED: LR 1,000 ML IV ONE (12:53)
[2016-06-04] MEDS ORDERED: LIDOCAINE 2% 5 ML SDV ONE (13:22)
[2016-06-04] MEDS ORDERED: epHEDrine SULFATE 10 MG/ML SYR ONE (13:23)
[2016-06-04] MEDS ORDERED: PHENYLEPHRINE HCL 100 MCG/ML SYR ONE (13:23)
--- NOTE | 2016-06-04 14:10 | POSTOPPROG ---
Post Op Note Date of Operation: 06/04/16 Surgeon: Francesco Jo Set Up Inspector: none Anesthesia: GET(General Endotracheal) Pre-op Diagnosis: left diabetic heel ulcer osteomylitis Post-op Diagnosis: same Indication: above Procedure: I and D with vac placement Findings: infectino Inf/Abcess present in the surg proc area at time of surgery?: Yes Depth: Deep Incisional (Fascial) EBL: 50-100 Drains: Wound Vac
[2016-06-04] MEDS ORDERED: CYCLOBENZAPRINE 10 MG TAB PO PRN (14:11)
[2016-06-04] MEDS ORDERED: oxyCODONE IR 5 MG TAB PO PRN (14:11)
[2016-06-04] MEDS ORDERED: METOCLOPRAMIDE 10 MG/2 ML VIAL IVP PRN (14:11)
[2016-06-04] MEDS ORDERED: PROMETHAZINE HCL 25 MG SUPPR PR PRN (14:11)
[2016-06-04] MEDS ORDERED: diphenhydrAMINE 25 MG CAP PO PRN (14:11)
[2016-06-04] MEDS ORDERED: ONDANSETRON 4 MG/2 ML VIAL IVP PRN (14:11)
[2016-06-04] MEDS ORDERED: TEMAZEPAM 15 MG CAP PO PRN (14:11)
[2016-06-04] MEDS ORDERED: DIPHENOXYLATE/ATROPINE LOMOTIL 1 TAB PO PRN (14:11)
[2016-06-04] MEDS ORDERED: GUAIFENESIN/DM 10 ML UDCUP PO PRN (14:23)
[2016-06-04] MEDS ORDERED: CEPACOL LOZENGE PO PRN (14:23)
[2016-06-04] MEDS ORDERED: NON-FORMULARY NEW DRUG (Diclofenac Sodium [Voltaren Gel (*)] 1 APP) TP PRN (14:23)
[2016-06-04] MEDS ORDERED: LR 1,000 ML IV SCH (14:30)
[2016-06-04] MEDS ORDERED: INSULIN GLARGINE 100 UNITS/ML SYRINGE SC SCH (15:00)
--- NOTE | 2016-06-04 15:00 | GOP ---
[f rep st] OPERATIVE REPORT DATE OF OPERATION: 06/04/2016 SURGEON: Francesco Jo MD ASP DEVELOPER: None. ANESTHESIA: General. PREOPERATIVE DIAGNOSIS: Left diabetic heel ulcer and osteomyelitis of the calcaneus. POSTOPERATIVE DIAGNOSIS: Left diabetic heel ulcer and osteomyelitis of the calcaneus. PROCEDURE PERFORMED: 1. Irrigation and debridement, left foot calcaneal diabetic heel ulcer, including bone, skin and soft tissue. 2. Deep cultures including bone cultures. 3. Wound VAC placement. Dimensions are 2 cm x 2 cm heel ulcer and final dimensions of the wound VAC were 2 cm x 1 cm and depth on 1cm.An additional 1 cm x 0.5 cm ulcer with depth of 0.25cm proximal to this. A single wound VAC was placed. FINDINGS: SPECIMENS: Deep tissue cultures, including bone and swab. ESTIMATED BLOOD LOSS: 10 mL. INDICATIONS: This is a 81-year-old male with diabetes. 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 He had gone on to reportedly heal the heel ulcer with wound VAC therapy. This then recurred at his nursing facility. He is seen in Wound Care Clinic and referred to me. He had an obviously infected, bad-smelling diabetic ulcer with an MRI consistent with an osteomyelitis when I saw him. I counseled he and his daughter on the risks and benefits of operative intervention for this. We did discuss below-knee amputation as well. He elected for debridement and attempted salvage of this. I discussed the need for wound VAC treatment, and he elected to proceed. Informed consent was obtained. All questions were answered. He was marked preoperatively. DESCRIPTION OF PROCEDURE: He was taken to operative suite. Anesthesia was induced, placed in prone position. All bony prominences were padded. A time- out was performed. He was sterilely prepped and draped in normal fashion. The time-out verified the site, side and location. And all were in agreement on the team. The tourniquet was then inflated without exsanguinating. I debrided the ulcer which had obvious necrotic and infected tissue. This took me down to the calcaneus and debrided a portion of the calcaneus which seemed soft. I worked under the ulcer and debrided bad-appearing tissue and got this trimmed back to a stable skin edges. The other ulcer just proximal to this in the lateral is very superficial, and this was gently debrided. After taking cultures, including bone, 2 g Ancef were administered. I irrigated with a Pulsavac with 3 L normal saline. I then dried this off thoroughly, placed the Mastisol in the incisions, placed a wound VAC in this ulcer after closing the ends of the ulcer with 0 PDS to achieve a small area for the wound VAC. The final dimensions of the wound VAC were 2 cm x 1 cm for 1 area, and then the proximal area to this was 1 cm x 0.5 cm. The wound VAC was brought around with skin protected to the front. Then placed it back. It had excellent suction, placed in a soft dressing and a padded boot. He was taken to PACU in stable condition. He will be admitted to the floor. Will start him on IV antibiotics. Infectious Disease will consult, and he will likely need wound VAC changes until this has healed. COMPLICATIONS: None. DRAINS: None. /[id number]/MODL MTDD
[2016-06-04] MEDS: VANCOMYCIN HCL/NORMAL SALINE 250 ML IV SCH (16:49)
[2016-06-04] MEDS ORDERED: LOPERAMIDE HCL 2 MG CAP PO PRN (17:05)
[2016-06-04] MEDS ORDERED: GLUCOSE-INSTA 15 GM TUBE PO PRN (17:05)
[2016-06-04] MEDS ORDERED: D50W 25 GM/50 ML SYR IVP PRN (17:10)
--- NOTE | 2016-06-04 17:48 | PCMIDPN ---
Assessment/Plan: #Persistent/recurrent L calcaneal OM - past cx +MRSA, gram stain currently polymicrobial but patient hemodynamically stable. Will start with vancomycin mono-therapy. Contact isolation. Adjust cultures based on cultures. Reviewed with patient will need PICC line again and 6 weeks of IV antibiotics. CRP normal. Check CBC in AM for baseline measurement #Renal insufficiency, Cr 1.7 --renal dose vancomycin 1gm IV daily Subjective: 81 year old male with DM, CAD, PVD with h/o polymicrobial diabetic R massive foot ulcer (MRSA, GBS, prevotella, peptostrep), R Calcaneal OM and peptostrep bacteremia s/p R BKA and L MRSA and [place]ia calcaneal OM initially patient give IV zosyn and vancomycin 12/23/15 but this was narrowed to vancomycin alone 12/31/15 through 02/03/2016. Admission 02/2016 for sepsis due to influenza. I have not seen him since that time but apparently had recurrent pressure injury L heal. MRI earlier this month showed OM of posterior lateral L calcaneus s/p debridement today and bone biopsy. Gram stain on bone biopsy polymicrobial Objective: Vital Signs Temp Pulse Resp BP Pulse Ox 36.9 C 97 16 171/86 H 100 06/04/16 17:33 06/04/16 17:33 06/04/16 17:33 06/04/16 17:33 06/04/16 17:33 Laboratory Results 06/04/16 12:08 06/03/16 06/04/16 06/05/16 05:59 05:59 05:59 Intake Total 1600 Balance 1600 - Physical Exam General Appearance: alert, no apparent distress EENT: pale conjunctiva, poor dentition Respiratory: lungs clear, normal breath sounds Cardiac/Chest: regular rate, rhythm Extremities: other (Dressing/wound vac in place R foot ) Abdomen: non-tender Male Genitalia: No myers Skin: No rash Neuro/Psych: alert, normal mood/affect, oriented x 3 - Time Spent With Patient Time Spent with Patient: greater than 35 minutes Time Spent with Patient: Greater than 35 minutes spent on this patients care, greater than 50% of time spent counseling, educating, and coordinating care regarding the above mentioned plan. ICD10 Worksheet Patient Problems: Problems Problem Status Onset Benign essential hypertension Active Diabetes mellitus type 2 Active Diabetic neuropathy Active Dyslipidemia Active Hypothyroidism Active Acute renal failure Acute Fever Acute MRSA (methicillin resistant Staphylococcus aureus) Acute 12/23/15 Muscle weakness Acute Pneumonia Acute Severe anemia Acute
[2016-06-04] MEDS: ACETAMINOPHEN 325 MG TAB PO SCH (18:22)
[2016-06-04 19:35] LABS: ALANINE AMINOTRANSFERASE 25 IU/L (21-72); ALBUMIN 3.7 g/dL (3.5-5.0); ALKALINE PHOSPHATASE 108 IU/L (38-126); ASPARTATE AMINOTRANSFERASE 22 IU/L (17-59); BILIRUBIN,TOTAL 0.7 mg/dL (0.1-1.4); BILIRUBIN-CONJUGATED 0.5 mg/dL (0.0-0.5); BILIRUBIN-UNCONJUGATED 0.2 mg/dL (0.0-1.1); C-REACTIVE PROTEIN < 5.0 mg/L (<10.0)
[2016-06-04] MEDS: LATANOPROST 0.005% 2.5 ML OPHT DROPS EACHEYE SCH ×2 (20:27→20:29)
[2016-06-04] MEDS: BRIMONIDINE/TIMOLOL 5 ML OPHT.BTL EACHEYE SCH (20:28)
[2016-06-04] MEDS: NEOMYCIN RTEYE SCH (20:31)
[2016-06-04] MEDS: DEXAMETHASONE RTEYE SCH (20:31)
[2016-06-04] MEDS: POLYMYXIN B RTEYE SCH (20:31)
[2016-06-04] MEDS: ATORVASTATIN CALCIUM 10 MG TAB PO SCH (20:32)
[2016-06-04] MEDS: TAMSULOSIN HCL 0.4 MG CAP PO SCH (20:32)
[2016-06-04] MEDS: FAMOTIDINE 20 MG TAB PO SCH (20:33)
[2016-06-04] MEDS: GABAPENTIN 300 MG CAP PO SCH (20:33)
[2016-06-04] MEDS ORDERED: NEO/POLYMYX B SULF/DEXAMETH 5 ML OPHT.BTL RTEYE SCH (21:00)
[2016-06-04] MEDS: CILOSTAZOL 100 MG TAB PO SCH (22:27)
[2016-06-05] MEDS: ACETAMINOPHEN 325 MG TAB PO SCH ×4 (01:18→17:17)
[2016-06-05 05:02] LABS: % IMMATURE GRANULYOCYTES 0.7 % (0.0-1.1); ABSOLUTE IMMATURE GRANULOCYTES 0.06 10^3/uL (0.00-0.10); ADD DIFF? NO; ADD MORPH? NO; ADD SCAN? NO; ATYPICAL LYMPHOCYTE FLAG 0 (0-99); FRAGMENT RBC FLAG 0 (0-99); HEMATOCRIT 26.1 % (40.0-51.0); HEMOGLOBIN 8.6 g/dL (13.7-17.5); LEFT SHIFT FLG 0 (0-99); LIPEMIA HEMOLYSIS FLAG 80 (0-99); MEAN CELL HEMOGLOBIN 31.3 pg (27.9-34.1); MEAN CELL VOLUME 94.9 fL (81.5-99.8); MEAN PLATELET VOLUME 9.2 fL (8.7-11.7); PLATELET CLUMPS FLAG 0 (0-99); PLATELET COUNT 264 10^3/uL (150-400); RED BLOOD CELL COUNT 2.75 10^6/uL (4.40-6.38); RED CELL DISTRIBUTION WIDTH 12.9 % (11.5-15.2)
[2016-06-05 05:11] LABS: ANION GAP 8 mEq/L (8-16); CALCIUM 8.5 mg/dL (8.5-10.4); CARBON DIOXIDE 21 mEq/l (22-31); CHLORIDE 111 mEq/L (97-110); CREATININE 1.4 mg/dL (0.7-1.3); GLOMERULAR FILTRATION RATE 49; GLUCOSE 78 mg/dL (70-100); POTASSIUM 4.3 mEq/L (3.5-5.2); SODIUM 140 mEq/L (134-144)
[2016-06-05] MEDS ORDERED: NS 1,000 ML IV ONE (05:12)
[2016-06-05] MEDS ORDERED: NS BOLUS 500 ML (Wide open) IV ONE (05:30)
[2016-06-05] MEDS: INSULIN GLARGINE 100 UNITS/ML SYRINGE SC SCH ×2 (05:50→15:21)
[2016-06-05] MEDS: LEVOTHYROXINE 100 MCG TAB PO SCH (05:51)
[2016-06-05] MEDS: ASPIRIN 81 MG CHEWABLE TAB PO SCH (05:51)
[2016-06-05] MEDS: CLOPIDOGREL BISULFATE 75 MG TAB PO SCH (05:51)
[2016-06-05] MEDS ORDERED: INSULIN GLARGINE 100 UNITS/ML SYRINGE SC SCH (06:00)
[2016-06-05] MEDS ORDERED: LISINOPRIL 5 MG TAB PO SCH (06:00)
--- NOTE | 2016-06-05 06:37 | GCON ---
[f rep st] CONSULTATION MEDICINE CONSULTATION CHIEF COMPLAINT: Recurrent left diabetic heel ulcer with history of left calcaneal osteomyelitis admitted to hospital for surgical debridement. HISTORY OF PRESENT ILLNESS: The patient is a 81-year-old male with a history of diabetes, coronary artery disease and peripheral vascular disease who is status post right BKA and returns to the hospital for incision and drainage of a recurrent left diabetic heel ulcer. The patient was previously admitted to the hospital in December 2015, for treatment of left calcaneal osteomyelitis. He initially received Zosyn and vancomycin. Antibiotics were narrowed to IV vancomycin, and he completed 6 weeks of therapy. He has had polymicrobial culture data, including MRSA, group beta strep, Prevotella and Peptostreptococcus. He had prior debridement of this left foot ulcer performed by Dr. Jo in the past with resolution after wound VAC therapy. However, his ulcer recurrend and repeat MRI showed persistent osteomyelitis of the left lateral calcaneus. He was sent back to Orthopedic Surgery for consideration of further operative management. Per review of the chart notes, a BKA of the left side was considered, but the patient and his family wished to pursue limb salvaging treatment options. Thus he underwent incision and drainage in the operating room 06/[address] Jo where deep tissue and bone cultures were obtained and a wound VAC was placed. He has denied fevers or chills and remains afebrile during this hospitalization. I was alerted by nursing staff at 0400 this morning that he had a blood pressure in the 60s over 40s. As it turns out, he had 2 low systolic blood pressure readings in the 60s and 70s which were apparently taken over his thick jacket. A repeat blood pressure was 150/79. He has had no tachycardia. He has denied dizziness, lightheadedness, chest pain, or shortness of breath. He has no abdominal pain, nausea, vomiting or diarrhea. His pain is controlled. He has no complaints at this time. PAST MEDICAL/SURGICAL HISTORY: 1. Diabetes mellitus. Insulin dependent. 2. Coronary artery disease. 3. Hypertension. 4. Hyperlipidemia. 5. Peripheral vascular disease, status post right BKA. 6. History of left calcaneal osteomyelitis, status post 6 weeks of IV antibiotics December and January of 2016. 7. Glaucoma. 8. BPH. 9. Hypothyroidism. MEDICATIONS: Please see [facility] for complete updated outpatient medication list. ALLERGIES: He has no known drug allergies. FAMILY HISTORY: Reviewed and is noncontributory. SOCIAL HISTORY: He has a 10-pack year tobacco history and quit smoking 40 years ago. He denies alcohol or drug use. He lives at [facility]. REVIEW OF SYSTEMS: A 10-point review of systems was performed and is negative except as per HPI. OBJECTIVE: VITAL SIGNS: Temperature 37 degrees, blood pressure 150/79, heart rate 80, respiratory rate 16. He is 97% on 2 L of oxygen by nasal cannula. GENERAL: The patient is awake, alert, oriented, in no acute distress. HEENT: Head is atraumatic, normocephalic. Pupils equal, round, and reactive to light. Extraocular motion intact. Oropharynx clear. Mucous membranes are moist. NECK: Supple. There is no JVD. HEART: Regular rate and rhythm without murmur. LUNGS: Clear to auscultation bilaterally. ABDOMEN: Soft, nondistended, nontender. Normoactive bowel sounds. EXTREMITIES: He is status post right BKA. His stump tissue appears healthy. His left lower extremity is bandaged which is clean, dry and intact. His toes are warm, well perfused and sensation is intact. NEUROLOGIC: Grossly nonfocal. LABORATORY DATA: CBC reveals a white blood cell count of 8.8, hemoglobin 8.6. Platelets are normal. Basic metabolic panel reveals a sodium of 140, potassium 4.3, chloride 111, bicarb 21, BUN 40, creatinine 1.4. Blood sugar 78. LFTs last June were within normal limits. CRP was less than 5. ASSESSMENT AND PLAN: The patient is a 81-year-old male with history of diabetes , peripheral vascular disease and coronary artery disease who is admitted to the hospital for operative intervention on a recurrent left diabetic foot ulcer with a history of left calcaneal osteomyelitis. 1. Left calcaneal diabetic ulcer with recurrent left calcaneal osteomyelitis, s /p I&D yesterday by Dr. Jo. Deep tissue and bone cultures are pending. There was some concern for septic shock in the early hours this morning as I was called with blood pressures in the 60s to 70s systolic. As it turned out, these were not valid readings and repeat BP was 150/79. Furthermore, he is afebrile, has a normal wbc count and a CRP of less than 5. At this time there is no evidence of sepsis or septic shock. ID has been consulted. The patient is being treated with IV vancomycin which is renally dosed in the setting of ROBERT and a creatinine of 1.7. Plan per ID is to place a PICC line and again treat with 6 weeks of IV antibiotics. A wound VAC is currently in place, and we will request a wound care consult. 2. Diabetes mellitus type 2. The patient is continued on his outpatient insulin regimen. However, I have decreased his Lantus dose for the morning from 35 to 20 units given a blood sugar this morning of 78. He will also receive preprandial bolus sliding scale insulin. We can up titrate his Lantus back to his home regimen as necessary. 3. Acute kidney injury. His baseline creatinine is around 1.1. Earlier this month his creatinine was 1.9. Since admission yesterday, his creatinine has trended down from 1.7 to 1.4. With his elevated BUN, I suspect he is prerenal. This is improving with gentle IV fluids. Will continue lactated Ringer's as ordered and monitor his renal function closely. Avoid nephrotoxic agents and renally dosed medications. I will discontinue his Celebrex for now. 4. Peripheral vascular disease, status post right BKA with recurrent left calcaneal osteomyelitis. His vascular status is unclear to me at this time. Consider obtaining ABIs or a Vascular Surgery consultation to ensure he has adequate arterial blood flow to heal his infection. I did not remove his dressing to palpate peripheral pulses, though his distal extremities are warm. Will continue his aspirin and Plavix. 5. Peripheral neuropathy. Continue gabapentin for neuropathic pain. The patient did complain of some nerve pain to me, and we could consider increasing his gabapentin dose for better control. 6. Coronary artery disease. This is currently stable. The patient is chest pain-free. Will continue his aspirin, Plavix and statin. 7. Hypertension. His blood pressure is fairly well controlled on his current regimen with lisinopril monotherapy. Since his potassium and creatinine are both trending down, I think it is okay to continue this for now. 8. Hyperlipidemia. Continue statin. 9. Benign prostatic hypertrophy. Continue Flomax. 10. Hypothyroidism. Continue his levothyroxine. 11. Deep vein thrombosis prophylaxis. Lovenox. 12. Code status: Patient is full code. Thank you for this consultation. We will continue to follow the patient and please do not hesitate to contact us with any questions or concerns. /[id number]/MODL MTDD
[2016-06-05] MEDS ORDERED: ALTEPLASE 2 MG VIAL IVP PRN (08:23)
--- NOTE | 2016-06-05 08:27 | SOAPPROG ---
SOAP Progress Note Assessment/Plan: Assessment: Left heel ulcer I and D and vac on 06/04 Plan: + gram stain, awaiting cultures on vanco per ID place PICC line for 6 weeks abx wound consult, likely vac change on tuesday or tuesday will need placement 06/05/16 08:25 Subjective: some pain in heel Objective: Vital Signs Temp Pulse Resp BP Pulse Ox 37.0 C 80 16 150/79 H 2 L 06/05/16 04:00 06/05/16 05:34 06/05/16 05:34 06/05/16 05:34 06/05/16 05:34 Microbiology 06/04/16 13:40 Gram Stain - Final Foot - Eswab 06/04/16 13:40 Gram Stain - Final Foot - Tissue Laboratory Results 06/05/16 04:22 06/05/16 04:22 06/04/16 06/05/16 06/06/16 05:59 05:59 05:59 Intake Total 2100 Output Total 750 Balance 1350 dressing intact wound vac good suction ICD10 Worksheet Patient Problems: Problems Problem Status Onset Benign essential hypertension Active Diabetes mellitus type 2 Active Diabetic neuropathy Active Dyslipidemia Active Hypothyroidism Active Acute renal failure Acute Fever Acute MRSA (methicillin resistant Staphylococcus aureus) Acute 12/23/15 Muscle weakness Acute Pneumonia Acute Severe anemia Acute
[2016-06-05] MEDS: CILOSTAZOL 100 MG TAB PO SCH ×2 (08:53→21:32)
[2016-06-05] MEDS: MULTIVITAMINS 1 EACH TAB PO SCH (08:53)
[2016-06-05] MEDS: PSYLLIUM METAMUCIL 1 PKT PO SCH (08:54)
[2016-06-05] MEDS: ENOXAPARIN 30 MG/0.3 ML SYR SC SCH (08:54)
[2016-06-05] MEDS ORDERED: NON-FORMULARY NEW DRUG (Omeprazole [Prilosec 20 Mg] 20 MG) PO SCH (09:00)
[2016-06-05] MEDS ORDERED: PSYLLIUM METAMUCIL 1 PKT PO SCH (09:00)
[2016-06-05] MEDS ORDERED: Herbals/Supplements -Info Only PO SCH (09:00)
--- NOTE | 2016-06-05 11:41 | HOSPPROG ---
Hospitalist Progress Note Assessment/Plan: DIAGNOSES: -Infected diabetic foot ulcer with osteomyelitis, status post prior debridement and antibiotics, now with recurrence of infection and debridement again - previous cultures polymicrobial including MRI say -Acute renal failure, likely hemodynamic with less likely ATN -Normocytic anemia appears to be at his chronic baseline, Etiology uncertain but it is is likely related to his infection and his renal disease -Peripheral vascular disease and coronary disease by history PLANS: -continue current antibiotics and follow wound cultures -Careful attention to monitoring blood sugars -Follow renal function along with hydration, further assessment if this does not resolve back to baseline SUBJECTIVE: the patient denies any significant pain nausea shortness of breath or fever symptoms No other acute complaints at this time but feels weak and tired OBJECTIVE Vitals reviewed: stable of vital signs without fever Exam: quite somnolent and falls asleep repeatedly during my attempt to interview and examine him., Seems oriented when he does wake up skin warm dry color ok resps not labored lungs clear BSs heart regular abd soft nondistended nontender, bowel sounds present limbs warm, no edema; his foot is in dressings wrapped with Sebastián. His toes are warm with good color and he moves them has good sensation there iv site ok Objective: Vital Signs Temp Pulse Resp BP Pulse Ox 36.9 C 73 20 115/61 97 06/05/16 08:00 06/05/16 08:00 06/05/16 08:00 06/05/16 08:00 06/05/16 08:00 Microbiology 06/04/16 13:40 Gram Stain - Final Foot - Eswab 06/04/16 13:40 Gram Stain - Final Foot - Tissue Laboratory Results 06/05/16 04:22 06/05/16 04:22 06/04/16 06/05/16 06/06/16 06:59 06:59 06:59 Intake Total 2100 Output Total 750 Balance 1350 ICD10 Worksheet Patient Problems: Problems Problem Status Onset Benign essential hypertension Active Diabetes mellitus type 2 Active Diabetic neuropathy Active Dyslipidemia Active Hypothyroidism Active Acute renal failure Acute Fever Acute MRSA (methicillin resistant Staphylococcus aureus) Acute 12/23/15 Muscle weakness Acute Pneumonia Acute Severe anemia Acute
[2016-06-05] MEDS: BRIMONIDINE/TIMOLOL 5 ML OPHT.BTL EACHEYE SCH ×2 (12:14→21:33)
[2016-06-05] MEDS: VANCOMYCIN HCL/NORMAL SALINE 250 ML IV SCH (15:20)
--- NOTE | 2016-06-05 16:59 | PCMIDPN ---
Assessment/Plan: Assessment/Plan: 1. Left heel ulcer/osteomyelitis: s/p debridement/wound vac: -s/p surgery yesterday - Preliminary cx: with Strep and Staph aureus. Hx of MrSA infection -Currently on VAnco for now. -creatinine improved from 1.7 to 1.4 -will need vanco trough at some point. Meds vanco 1g daily- 06/04/16 Subjective: Afebrile. Feels tired today. Denies sob. mild cough. denies abd pain or diarrhea. Objective: Vital Signs Temp Pulse Resp BP Pulse Ox 37.0 C 84 16 96/53 L 92 06/05/16 12:00 06/05/16 12:00 06/05/16 12:00 06/05/16 12:00 06/05/16 12:00 Microbiology 06/04/16 13:40 Gram Stain - Final Foot - Eswab 06/04/16 13:40 Gram Stain - Final Foot - Tissue Laboratory Results 06/05/16 04:22 06/05/16 04:22 06/04/16 06/05/16 06/06/16 05:59 05:59 05:59 Intake Total 2100 Output Total 750 Balance 1350 C-Reactive Protein < 5.0 mg/L (<10.0) 06/04/16 18:54 - Physical Exam General Appearance: alert, no apparent distress Respiratory: lungs clear Cardiac/Chest: regular rate, rhythm Extremities: other (right BKa. left foot with dressing/wound vac.) Abdomen: normal bowel sounds, non-tender, soft, No distended Skin: No erythema ICD10 Worksheet Patient Problems: Problems Problem Status Onset Benign essential hypertension Active Diabetes mellitus type 2 Active Diabetic neuropathy Active Dyslipidemia Active Hypothyroidism Active Acute renal failure Acute Fever Acute MRSA (methicillin resistant Staphylococcus aureus) Acute 12/23/15 Muscle weakness Acute Pneumonia Acute Severe anemia Acute
[2016-06-05] MEDS: ATORVASTATIN CALCIUM 10 MG TAB PO SCH (21:32)
[2016-06-05] MEDS: TAMSULOSIN HCL 0.4 MG CAP PO SCH (21:32)
[2016-06-05] MEDS: FAMOTIDINE 20 MG TAB PO SCH (21:32)
[2016-06-05] MEDS: GABAPENTIN 300 MG CAP PO SCH (21:32)
[2016-06-05] MEDS: DEXAMETHASONE RTEYE SCH (21:33)
[2016-06-05] MEDS: POLYMYXIN B RTEYE SCH (21:33)
[2016-06-05] MEDS: NEOMYCIN RTEYE SCH (21:33)
[2016-06-05] MEDS: LATANOPROST 0.005% 2.5 ML OPHT DROPS EACHEYE SCH (21:33)
[2016-06-06] MEDS: ACETAMINOPHEN 325 MG TAB PO SCH ×4 (01:24→17:34)
[2016-06-06] MEDS: LEVOTHYROXINE 100 MCG TAB PO SCH (05:19)
[2016-06-06] MEDS: CLOPIDOGREL BISULFATE 75 MG TAB PO SCH (05:19)
[2016-06-06] MEDS: ASPIRIN 81 MG CHEWABLE TAB PO SCH (05:19)
[2016-06-06] MEDS: INSULIN GLARGINE 100 UNITS/ML SYRINGE SC SCH ×3 (05:33→15:48)
[2016-06-06] MEDS: ENOXAPARIN 30 MG/0.3 ML SYR SC SCH (08:44)
[2016-06-06] MEDS: PSYLLIUM METAMUCIL 1 PKT PO SCH (08:44)
[2016-06-06] MEDS: CILOSTAZOL 100 MG TAB PO SCH ×2 (08:44→21:03)
[2016-06-06] MEDS: MULTIVITAMINS 1 EACH TAB PO SCH (08:44)
[2016-06-06] MEDS: BRIMONIDINE/TIMOLOL 5 ML OPHT.BTL EACHEYE SCH ×2 (08:57→20:59)
--- NOTE | 2016-06-06 11:20 | SOAPPROG ---
SOAP Progress Note Assessment/Plan: Assessment: Left heel ulcer I and D and vac on 06/04 Plan: cultures showing staph on vanco per ID PICC line placed wound consult, will have vac change on tuesday with Dr. Lazo's P.A. plan to return to [facility] with IV abx and wound vac changes 06/05/16 08:25 06/06/16 11:19 Subjective: min pain Objective: Vital Signs Temp Pulse Resp BP Pulse Ox 36.8 C 75 12 115/56 L 92 06/06/16 07:17 06/06/16 07:17 06/06/16 07:17 06/06/16 07:17 06/06/16 07:17 Microbiology 06/04/16 13:40 Gram Stain - Final Foot - Eswab 06/04/16 13:40 Gram Stain - Final Foot - Tissue 06/04/16 13:40 Mycobacterial Smear (ALBINO) - Final Foot - Tissue Laboratory Results 06/05/16 04:22 06/05/16 04:22 06/05/16 06/06/16 06/07/16 05:59 05:59 05:59 Intake Total 2100 750 Output Total 750 950 Balance 1350 -200 vac intact ICD10 Worksheet Patient Problems: Problems Problem Status Onset Benign essential hypertension Active Diabetes mellitus type 2 Active Diabetic neuropathy Active Dyslipidemia Active Hypothyroidism Active Acute renal failure Acute Fever Acute MRSA (methicillin resistant Staphylococcus aureus) Acute 12/23/15 Muscle weakness Acute Pneumonia Acute Severe anemia Acute
[2016-06-06] MEDS: LISINOPRIL 10 MG TAB PO SCH ×2 (14:39→16:15)
--- NOTE | 2016-06-06 15:18 | WOCRNPDOC ---
WOCRN Advanced Assessment Note - Skin Integrity Problem, Advanced Assess Left Heel Diabetic Ulcer Dressing Type: Sebastián Bandage, Wound Vac, Other Other Dressing Type: Cast batting Dressing Description: Shadowed Exudate Amount: Moderate Exudate Color: Reddish/Yellow Exudate Characteristic(s): Dried, Serosanguinous (dried on sebastián and batting) Integumentary Issue Intervention: Visualized Under Dressing (under sebastián) Skin Integrity Problem Comment: At request of COLETTE Luque, assessed wound vac operation and outer dressings. Tx is active, without any alarm conditions, at standard settings (125mmHG negative pressure, continuous); moderate amount of drainage in canister (approx 200 ml). Sebastián wrap demonstrates shadowing of dried drainage, foot splint is in place, secured by intact batting, which shows dried drainage. Resecured with sebastián wrap. Dressing change is due on Wednesday 06/07.
[2016-06-06] MEDS: VANCOMYCIN HCL/NORMAL SALINE 250 ML IV SCH (16:16)
--- NOTE | 2016-06-06 17:02 | PCMIDPN ---
Assessment/Plan: Assessment/Plan: 1. Left heel ulcer/osteomyelitis: s/p debridement/wound vac: -s/p surgery yesterday - Preliminary cx: with Strep and Staph aureus. Hx of MrSA infection -Currently on VAnco for now. -creatinine improved from 1.7 to 1.4 -will order vanco trough for tomorrow. -check labs in am. -evaluate wound at time of vac change. Meds vanco 1g daily- 06/04/16 Subjective: afebrile. feels well. Denies sob, abd pian or diarrhea. wound vac present. Objective: Vital Signs Temp Pulse Resp BP Pulse Ox 36.9 C 79 14 185/86 H 92 06/06/16 14:59 06/06/16 14:59 06/06/16 14:59 06/06/16 16:15 06/06/16 14:59 Microbiology 06/04/16 13:40 Gram Stain - Final Foot - Tissue - Final 06/04/16 13:40 Mycobacterial Smear (ALBINO) - Final Foot - Tissue 06/04/16 13:40 Gram Stain - Final Foot - Eswab Laboratory Results 06/05/16 04:22 06/05/16 04:22 06/05/16 06/06/16 06/07/16 05:59 05:59 05:59 Intake Total 2100 750 Output Total 750 950 Balance 1350 -200 C-Reactive Protein < 5.0 mg/L (<10.0) 06/04/16 18:54 - Physical Exam General Appearance: alert, no apparent distress Respiratory: lungs clear Cardiac/Chest: regular rate, rhythm Extremities: other (right bka. left foot with wound vac) Abdomen: normal bowel sounds, non-tender, soft, No distended Skin: No erythema ICD10 Worksheet Patient Problems: Problems Problem Status Onset Benign essential hypertension Active Diabetes mellitus type 2 Active Diabetic neuropathy Active Dyslipidemia Active Hypothyroidism Active Acute renal failure Acute Fever Acute MRSA (methicillin resistant Staphylococcus aureus) Acute 12/23/15 Muscle weakness Acute Pneumonia Acute Severe anemia Acute
--- NOTE | 2016-06-06 17:51 | HOSPPROG ---
Hospitalist Progress Note Assessment/Plan: DIAGNOSES: -Infected diabetic foot ulcer with osteomyelitis, status post prior debridement and antibiotics, now with recurrence of infection and debridement again - previous cultures polymicrobial including MRI say -Acute renal failure, likely hemodynamic with less likely ATN -Normocytic anemia appears to be at his chronic baseline, Etiology uncertain but it is is likely related to his infection and his renal disease -Peripheral vascular disease and coronary disease by history PLANS: -continue current antibiotics and follow wound cultures -reassess wound tomorrow at wound VAC change -Careful attention to monitoring blood sugars which are very good so far -Follow renal function along with hydration, further assessment if this does not resolve back to baseline -potentially home in 1-2 days, will review with ID after his wound change tomorrow SUBJECTIVE: No pain at foot ankle or leg. No other discomfort no breathing problems no fever symptoms, eating well Hoping to go home tomorrow OBJECTIVE Vitals reviewed: stable of vital signs without fever Exam: quite somnolent and falls asleep repeatedly during my attempt to interview and examine him., Seems oriented when he does wake up skin warm dry color ok resps not labored lungs clear BSs heart regular abd soft nondistended nontender, bowel sounds present limbs warm, no edema; his foot is in dressings wrapped with Sebastián. His toes are warm with good color and he moves them has good sensation there iv site ok Objective: Vital Signs Temp Pulse Resp BP Pulse Ox 36.9 C 79 14 150/98 H 92 06/06/16 14:59 06/06/16 14:59 06/06/16 14:59 06/06/16 17:37 06/06/16 14:59 Microbiology 06/04/16 13:40 Gram Stain - Final Foot - Tissue - Final 06/04/16 13:40 Mycobacterial Smear (ALBINO) - Final Foot - Tissue 06/04/16 13:40 Gram Stain - Final Foot - Eswab Laboratory Results 06/05/16 04:22 06/05/16 04:22 06/05/16 06/06/16 06/07/16 06:59 06:59 06:59 Intake Total 2100 750 Output Total 750 950 Balance 1350 -200 ICD10 Worksheet Patient Problems: Problems Problem Status Onset Benign essential hypertension Active Diabetes mellitus type 2 Active Diabetic neuropathy Active Dyslipidemia Active Hypothyroidism Active Acute renal failure Acute Fever Acute MRSA (methicillin resistant Staphylococcus aureus) Acute 12/23/15 Muscle weakness Acute Pneumonia Acute Severe anemia Acute
[2016-06-06] MEDS: LATANOPROST 0.005% 2.5 ML OPHT DROPS EACHEYE SCH (20:59)
[2016-06-06] MEDS: DEXAMETHASONE RTEYE SCH (21:00)
[2016-06-06] MEDS: POLYMYXIN B RTEYE SCH (21:00)
[2016-06-06] MEDS: NEOMYCIN RTEYE SCH (21:00)
[2016-06-06] MEDS: GABAPENTIN 300 MG CAP PO SCH (21:01)
[2016-06-06] MEDS: FAMOTIDINE 20 MG TAB PO SCH (21:01)
[2016-06-06] MEDS: TAMSULOSIN HCL 0.4 MG CAP PO SCH (21:02)
[2016-06-06] MEDS: ATORVASTATIN CALCIUM 10 MG TAB PO SCH (21:02)
[2016-06-07] MEDS: ACETAMINOPHEN 325 MG TAB PO SCH ×4 (00:02→16:45)
[2016-06-07] MEDS: ASPIRIN 81 MG CHEWABLE TAB PO SCH (05:21)
[2016-06-07] MEDS: CLOPIDOGREL BISULFATE 75 MG TAB PO SCH (05:21)
[2016-06-07] MEDS: LEVOTHYROXINE 100 MCG TAB PO SCH (05:21)
[2016-06-07 05:37] LABS: % IMMATURE GRANULYOCYTES 0.8 % (0.0-1.1); ABSOLUTE IMMATURE GRANULOCYTES 0.05 10^3/uL (0.00-0.10); ADD DIFF? NO; ADD MORPH? NO; ADD SCAN? NO; ATYPICAL LYMPHOCYTE FLAG 0 (0-99); FRAGMENT RBC FLAG 0 (0-99); HEMATOCRIT 24.3 % (40.0-51.0); HEMOGLOBIN 8.1 g/dL (13.7-17.5); LEFT SHIFT FLG 0 (0-99); LIPEMIA HEMOLYSIS FLAG 80 (0-99); MEAN CELL HEMOGLOBIN 31.3 pg (27.9-34.1); MEAN CELL HEMOGLOBIN CONCENTR. 33.3 g/dL (32.4-36.7); MEAN CELL VOLUME 93.8 fL (81.5-99.8); MEAN PLATELET VOLUME 9.1 fL (8.7-11.7); PLATELET CLUMPS FLAG 10 (0-99); PLATELET COUNT 227 10^3/uL (150-400); RED BLOOD CELL COUNT 2.59 10^6/uL (4.40-6.38); RED CELL DISTRIBUTION WIDTH 12.6 % (11.5-15.2)
[2016-06-07 06:11] LABS: ALANINE AMINOTRANSFERASE 33 IU/L (21-72); ALBUMIN 2.9 g/dL (3.5-5.0); ALKALINE PHOSPHATASE 84 IU/L (38-126); ANION GAP 8 mEq/L (8-16); ASPARTATE AMINOTRANSFERASE 26 IU/L (17-59); BILIRUBIN,TOTAL 0.4 mg/dL (0.1-1.4); CALCIUM 8.4 mg/dL (8.5-10.4); CARBON DIOXIDE 24 mEq/l (22-31); CHLORIDE 111 mEq/L (97-110); CREATININE 1.2 mg/dL (0.7-1.3); GLOMERULAR FILTRATION RATE 58; GLUCOSE 87 mg/dL (70-100); POTASSIUM 4.2 mEq/L (3.5-5.2); SODIUM 143 mEq/L (134-144); TOTAL PROTEIN 5.9 g/dL (6.3-8.2)
[2016-06-07 08:00] VITALS: BP 150/68
[2016-06-07] MEDS: INSULIN GLARGINE 100 UNITS/ML SYRINGE SC SCH ×2 (08:25→15:26)
--- NOTE | 2016-06-07 08:38 | SOAPPROG ---
SOAP Progress Note Assessment/Plan: Assessment: Left heel ulcer I and D and vac on 06/04 Plan: cultures showing staph on vanco per ID PICC line placed wound consult, will have vac change today with Dr. Lazo's P.A. plan to return to [facility] with IV abx and wound vac changes potentially today 06/05/16 08:25 06/06/16 11:19 06/07/16 08:37 Subjective: minimal pain Objective: Vital Signs Temp Pulse Resp BP Pulse Ox 36.6 C 74 12 150/68 H 92 06/07/16 07:58 06/07/16 07:58 06/07/16 07:58 06/07/16 07:58 06/07/16 07:58 Microbiology 06/04/16 13:40 Gram Stain - Final Foot - Tissue - Final 06/04/16 13:40 Mycobacterial Smear (ALBINO) - Final Foot - Tissue 06/04/16 13:40 Gram Stain - Final Foot - Eswab Laboratory Results 06/07/16 05:20 06/07/16 05:20 06/06/16 06/07/16 06/08/16 05:59 05:59 05:59 Intake Total 750 500 Output Total 950 950 Balance -200 -450 wound VAC intact ICD10 Worksheet Patient Problems: Problems Problem Status Onset Benign essential hypertension Active Diabetes mellitus type 2 Active Diabetic neuropathy Active Dyslipidemia Active Hypothyroidism Active Acute renal failure Acute Fever Acute MRSA (methicillin resistant Staphylococcus aureus) Acute 12/23/15 Muscle weakness Acute Pneumonia Acute Severe anemia Acute
[2016-06-07] MEDS: LISINOPRIL 10 MG TAB PO SCH (09:32)
[2016-06-07] MEDS: CILOSTAZOL 100 MG TAB PO SCH (09:33)
[2016-06-07] MEDS: ENOXAPARIN 30 MG/0.3 ML SYR SC SCH (09:33)
[2016-06-07] MEDS: MULTIVITAMINS 1 EACH TAB PO SCH (09:33)
[2016-06-07] MEDS: PSYLLIUM METAMUCIL 1 PKT PO SCH (09:34)
[2016-06-07] MEDS: BRIMONIDINE/TIMOLOL 5 ML OPHT.BTL EACHEYE SCH (09:35)
--- NOTE | 2016-06-07 09:44 | PDIAF ---
- Diagnosis Code Status: Do Not Resuscitate - Medication Management Discharge Medications: Medications to Continue on Transfer Acetaminophen [Tylenol 325mg (*)] 650 mg PO Q8 PRN 02/20/16 [Last Taken Unknown] Aspirin [Aspirin 81mg (*)] 81 mg PO DAILY06 02/20/16 [Last Taken 06/03/16] Atorvastatin Calcium [Lipitor 10 mg (*)] 10 mg PO HS 02/20/16 [Last Taken ] Benzocaine/Menthol 15/ [Cepacol Lozenge] 1 ea PO Q4H PRN 02/20/16 [Last Taken Unknown] Bisacodyl [Dulcolax] 10 mg HI DAILY PRN 02/20/16 [Last Taken Unknown] Brimonidine/Timolol [Combigan (*)] 1 drops EACHEYE BID 02/20/16 [Last Taken 08:00] Cilostazol [Pletal (*)] 100 mg PO BID 02/20/16 [Last Taken 06/04/16 08:00] Clopidogrel Bisulfate [Plavix (*)] 75 mg PO DAILY06 02/20/16 [Last Taken ] Diclofenac Sodium [Voltaren Gel (*)] 1 jake TP BID PRN 02/20/16 [Last Taken Unknown] Gabapentin [Neurontin 300 MG (*)] 300 mg PO HS 02/20/16 [Last Taken 06/03/16] Herbals/Supplements -Info Only 1 ea PO DAILY 02/20/16 [Last Taken Unknown] Latanoprost 0.005% [Xalatan 0.005% (*)] 1 drops EACHEYE HS 02/20/16 [Last Taken 06/03/16] Levothyroxine [Synthroid 100 mcg (*)] 100 mcg PO DAILY06 02/20/16 [Last Taken ] Multivitamins [Multivitamin (*)] 1 each PO DAILY 02/20/16 [Last Taken 06/04/16] Ondansetron Odt [Zofran Odt 4 mg (*)] 4 - 8 mg PO Q6H PRN 02/20/16 [Last Taken Unknown] Simethicone [GAS-X] 80 - 160 mg PO Q8 PRN 02/20/16 [Last Taken 05/26/16] Tamsulosin HCl [Flomax 0.4 MG (*)] 0.4 mg PO HS 02/20/16 [Last Taken 06/03/16] guaiFENesin/DEXTROMETHORPHAN [Robitussin Dm Oral Liquid (*)] 10 ml PO Q8 PRN 07/31 [Last Taken Unknown] oxyCODONE IR [Oxycodone Ir (*)] 5 mg PO Q4H PRN 02/20/16 [Last Taken 05/24/16] Insulin Glargine [Lantus 100 UNITS/ML (*)] 20 units SC DAILY@15 06/03/16 [Last Taken 06/04/16 26 UNITS] Insulin Glargine [Lantus 100 UNITS/ML (*)] 35 units SC DAILY06 06/03/16 [Last Taken 06/03/16] Dextrose [Glutose 15] 1 jake PO PRN PRN 06/04/16 [Last Taken Unknown] Ergocalciferol [Vitamin D2 (*)] 50,000 unit PO Q30D@08 06/04/16 [Last Taken ] Lisinopril [Zestril 10 mg (*)] 10 mg PO DAILY 06/04/16 [Last Taken 06/04/16] Loperamide HCl [Loperamide] 2 mg PO PRN PRN 06/04/16 [Last Taken Unknown] Neomycin/Polymyxin B/Dexametha [Pgcqff-Ooaes-Siiigxh Eye Ointm] 1 jake RTEYE HS 06/04/16 [Last Taken 06/03/16] Psyllium Husk (with Sugar) [Metamucil Packet] 1 packet PO DAILY 06/04/16 [Last Taken 06/04/16] Systems Administration Analyst Antibiotics: vancomycin 1 gm iv q 24 hours Systems Administration Analyst Antibiotic Stop Date: 07/18/16 Discharge Medications: Refer to the Discharge Home Medication list for PRN reason. PICC Care - Routine: Yes - Orders Services needed: Registered Nurse, Certified Risk Engineer, Master Condemnation Engineer Diet Recommendation: ADA 2200 consistent carb Diet Texture: Regular Texture Diet - Labs/Radiology BMP Date: 06/11/16 - Follow Up Care Current Providers and Referrals: NONE *PRIMARY CARE P,. [Primary Care Provider] -
[2016-06-07 11:15] VITALS: PULSE 72; RESP 14; TEMP 97.9; O2SAT 93
--- NOTE | 2016-06-07 11:18 | GPN ---
[f rep st] PROCEDURE NOTE DATE OF PROCEDURE: 06/07/2016 ANESTHESIA: None. PREOP DIAGNOSIS: Left diabetic heel ulcer with osteomyelitis. PROCEDURE PERFORMED: Application of tissue-derived skin substitute AmnioFill. POSTPROCEDURE DIAGNOSIS: Left diabetic heel ulcer with osteomyelitis. INDICATION: The patient is a 81-year-old man with type 2 diabetes who developed a left heel diabeti c ulcer with bone involvement. He was taken to the operating room by Dr. Jo on 06/04/2016 for d ebridement with wound VAC placement. Cultures revealed MRSA and Strep agalactiae group B. He is re ceiving IV antibiotics. He has no residual signs of infection. He is a nonsmoker. He is off-loadi ng. FINDINGS: AmnioFill 100 mg, [id number], expiration 12/15/2020. DESCRIPTION OF PROCEDURE: The patient was verbally consented for the procedure. A timeout was perf ormed. The wound VAC dressing was removed. No debridement was required. I then applied AmnioFill 100 mg followed by the wound VAC dressing. The wound VAC was to suction. The ankle wrapped with an Sebastián wrap and placed in an offloading boot. He tolerated the procedure well. He will follow up in 1 week for dressing change. The wound VAC will not be changed for 1 week. /[id number]/MODL
--- NOTE | 2016-06-07 11:48 | GCON ---
[f rep st] CONSULTATION DATE OF CONSULTATION: 06/07/2016 REASON FOR CONSULTATION: Left heel diabetic ulcer. HISTORY OF PRESENT ILLNESS: The patient is a 81-year-old man well-known to our service at the [facility], for left diabetic foot ulcer of the calcaneus. He was taken to the oper ating room by Dr. Jo on 06/04/2016, for debridement of the wound, including calcaneus. Cultures from the surgery revealed MRSA, Streptococcus agalactiae group B. He is on IV vancomycin, which beck s been recommended for 6 weeks by Infectious Disease. We have been asked to see the patient for tracey oing wound care. PAST MEDICAL HISTORY: Type 2 diabetes, coronary artery disease, hypertension, hyperlipidemia, perip heral vascular disease, glaucoma, BPH, hypothyroidism. ALLERGIES: No known drug allergies. FAMILY HISTORY: Noncontributory to wound. SOCIAL HISTORY: He lives at [facility]. He is a former smoker. He denies alcohol or recreation al drug use. REVIEW OF SYSTEMS: A 10-point review of systems negative aside from HPI. PHYSICAL EXAMINATION: GENERAL: Well-developed, well-nourished man, in no acute distress. HEENT: Normocephalic, atraumatic. No hearing deficits. Pupils equal and round. No scleral icterus. Muco us membranes moist. NECK: Trachea midline. CARDIOVASCULAR: No peripheral edema. RESPIRATORY: N o increased work of breathing. MUSCULOSKELETAL: Status post right BKA. SKIN: Left calcaneal woun d clean, dry, and intact. There is a small area of palpable calcaneus in the base of the wound. Helms tures intact. No surrounding erythema, purulence, or any evidence of infection. I then applied Amni oFill, followed by the wound VAC dressing. See procedure note for further detail. PSYCH: Mood and affect normal. IMPRESSION AND PLAN: The patient is a 81-year-old man with a left calcaneus diabetic ulcer, status post debridement by Dr. Jo. I have applied AmnioFill, followed by the wound VAC dressing. The dressing does not need to be replaced for 1 week. He will follow up as an outpatient at the [facility] in 1 week for dressing change. He will continue IV antibiotics for 6 weeks, as recomm ended by Infectious Disease. Please call with any worsening symptoms, questions, or concerns. We w ill follow him as an outpatient. Dr. Elmore is supervising physician to this note. /[id number]/MODL
[2016-06-07] MEDS ORDERED: FLUCONAZOLE 100 MG TAB PO SCH (15:30)
--- NOTE | 2016-06-07 15:30 | PCMIDPN ---
Assessment/Plan: Assessment/Plan: * Left calcaneal osteomyelitis status post debridement and wound VAC placement: Cultures with growth of MRSA and group B Streptococcus. Operative culture also now with growth of yeast. Will continue vancomycin-level pending this afternoon to assess dosing. Will add fluconazole 200 mg p. o. daily pending identification of yeast. Anticipate 6 week course of therapy with full weekly laboratory monitoring and creatinine/vancomycin trough twice weekly. Follow-up with Dr. Brito in our office next week. 06/07/16 15:27 Subjective: No further diarrhea after Imodium. Objective: Vital Signs Temp Pulse Resp BP Pulse Ox 36.6 C 72 14 150/68 H 93 06/07/16 11:15 06/07/16 11:15 06/07/16 11:15 06/07/16 11:15 06/07/16 11:15 Microbiology 06/04/16 13:40 Gram Stain - Final Foot - Eswab 06/04/16 13:40 Gram Stain - Final Foot - Tissue - Final 06/04/16 13:40 Mycobacterial Smear (ALBINO) - Final Foot - Tissue Laboratory Results 06/07/16 05:20 06/07/16 05:20 06/06/16 06/07/16 06/08/16 05:59 05:59 05:59 Intake Total 750 500 Output Total 950 950 Balance -200 -450 C-Reactive Protein < 5.0 mg/L (<10.0) 06/04/16 18:54 Vancomycin # 4 Operative cultures with growth of MRSA and group B Streptococcus Operative fungal culture 1/2 with growth of yeast - Physical Exam General Appearance: alert, no apparent distress EENT: pharynx normal, No scleral icterus Respiratory: lungs clear Cardiac/Chest: regular rate, rhythm, No systolic murmur Extremities: other (Left foot with wound VAC in place) Abdomen: non-tender, No distended - Line/s RUE PICC Lines: No drainage, No erythema ICD10 Worksheet Patient Problems: Problems Problem Status Onset Benign essential hypertension Active Diabetes mellitus type 2 Active Diabetic neuropathy Active Dyslipidemia Active Hypothyroidism Active Acute renal failure Acute Fever Acute MRSA (methicillin resistant Staphylococcus aureus) Acute 12/23/15 Muscle weakness Acute Pneumonia Acute Severe anemia Acute
--- NOTE | 2016-06-07 15:33 | PDIAF ---
- Diagnosis Diagnosis: Left calcaneal osteomyelitis Code Status: Do Not Resuscitate - Medication Management Discharge Medications: Medications to Continue on Transfer Acetaminophen [Tylenol 325mg (*)] 650 mg PO Q8 PRN 02/20/16 [Last Taken Unknown] Aspirin [Aspirin 81mg (*)] 81 mg PO DAILY06 02/20/16 [Last Taken 06/03/16] Atorvastatin Calcium [Lipitor 10 mg (*)] 10 mg PO HS 02/20/16 [Last Taken ] Benzocaine/Menthol 29/05 [Cepacol Lozenge] 1 ea PO Q4H PRN 02/20/16 [Last Taken Unknown] Bisacodyl [Dulcolax] 10 mg AL DAILY PRN 02/20/16 [Last Taken Unknown] Brimonidine/Timolol [Combigan (*)] 1 drops EACHEYE BID 02/20/16 [Last Taken 08:00] Cilostazol [Pletal (*)] 100 mg PO BID 02/20/16 [Last Taken 06/04/16 08:00] Clopidogrel Bisulfate [Plavix (*)] 75 mg PO DAILY06 02/20/16 [Last Taken ] Diclofenac Sodium [Voltaren Gel (*)] 1 jake TP BID PRN 02/20/16 [Last Taken Unknown] Gabapentin [Neurontin 300 MG (*)] 300 mg PO HS 02/20/16 [Last Taken 06/03/16] Herbals/Supplements -Info Only 1 ea PO DAILY 02/20/16 [Last Taken Unknown] Latanoprost 0.005% [Xalatan 0.005% (*)] 1 drops EACHEYE HS 02/20/16 [Last Taken 06/03/16] Levothyroxine [Synthroid 100 mcg (*)] 100 mcg PO DAILY06 02/20/16 [Last Taken ] Multivitamins [Multivitamin (*)] 1 each PO DAILY 02/20/16 [Last Taken 06/04/16] Ondansetron Odt [Zofran Odt 4 mg (*)] 4 - 8 mg PO Q6H PRN 02/20/16 [Last Taken Unknown] Simethicone [GAS-X] 80 - 160 mg PO Q8 PRN 02/20/16 [Last Taken 04/12/17] Tamsulosin HCl [Flomax 0.4 MG (*)] 0.4 mg PO HS 02/20/16 [Last Taken 06/03/16] guaiFENesin/DEXTROMETHORPHAN [Robitussin Dm Oral Liquid (*)] 10 ml PO Q8 PRN 07/31 [Last Taken Unknown] oxyCODONE IR [Oxycodone Ir (*)] 5 mg PO Q4H PRN 02/20/16 [Last Taken 05/24/16] Insulin Glargine [Lantus 100 UNITS/ML (*)] 20 units SC DAILY@15 06/03/16 [Last Taken 06/04/16 26 UNITS] Insulin Glargine [Lantus 100 UNITS/ML (*)] 35 units SC DAILY06 06/03/16 [Last Taken 06/03/16] Dextrose [Glutose 15] 1 jake PO PRN PRN 06/04/16 [Last Taken Unknown] Ergocalciferol [Vitamin D2 (*)] 50,000 unit PO Q30D@08 06/04/16 [Last Taken ] Lisinopril [Zestril 10 mg (*)] 10 mg PO DAILY 06/04/16 [Last Taken 06/04/16] Loperamide HCl [Loperamide] 2 mg PO PRN PRN 06/04/16 [Last Taken Unknown] Neomycin/Polymyxin B/Dexametha [Vuzhnt-Gxtmw-Vbiydge Eye Ointm] 1 jake RTEYE HS 06/04/16 [Last Taken 06/03/16] Psyllium Husk (with Sugar) [Metamucil Packet] 1 packet PO DAILY 06/04/16 [Last Taken 06/04/16] Director Employment Antibiotics: vancomycin 1 gm iv q 24 hours, fluconazole 200 mg p.o. daily Halfway Antibiotic Stop Date: 07/18/16 Discharge Medications: Refer to the Discharge Home Medication list for PRN reason. PICC Care - Routine: Yes - Orders Services needed: Registered Nurse, Certified Crayon Grader, Master Forging Operator Diet Recommendation: ADA 2200 consistent carb Diet Texture: Regular Texture Diet - Labs/Radiology CBC Date: 05/24/16 (Weekly Q Tuesday) CMP Date: 05/24/16 (Weekly Q Tuesday) Vanco Trough Date and Time: Q Tuesday, Q 30 minutes prior to vancomycin dose Call or Fax Lab and Imaging Results to: Dr. Brito, - Follow Up Care Current Providers and Referrals: [facility] [Clinic] - 06/14/16 10:00 am NONE *PRIMARY CARE P,. [Primary Care Provider] - Mimi Brito MD [Medical Doctor] - 06/15/16 11:00 am
--- NOTE | 2016-06-07 15:39 | HOSPPROG ---
Hospitalist Progress Note Assessment/Plan: DIAGNOSES: -Infected diabetic foot ulcer with osteomyelitis, status post prior debridement and antibiotics, now with recurrence of infection and debridement again - previous cultures polymicrobial including MRI say -Acute renal failure, likely hemodynamic with less likely ATN -Normocytic anemia appears to be at his chronic baseline, Etiology uncertain but it is is likely related to his infection and his renal disease -Peripheral vascular disease and coronary disease by history Wound looked good at wound vacc change Overall stable He will be transferred to [facility] today PLANS: -continue current antibiotics and follow wound cultures for total 6 weeks -wound vacc care at [facility] -he will need ongoing monitoring of renal fx and vanc levels(arranged by Dr Ellison ) SUBJECTIVE: No pain at foot ankle or leg. No other discomfort no breathing problems no fever symptoms, eating well OBJECTIVE Vitals reviewed: stable of vital signs without fever Exam: quite somnolent and falls asleep repeatedly during my attempt to interview and examine him., Seems oriented when he does wake up skin warm dry color ok resps not labored lungs clear BSs heart regular abd soft nondistended nontender, bowel sounds present limbs warm, no edema; his foot is in dressings wrapped with Sebastián. His toes are warm with good color and he moves them has good sensation there iv site ok Objective: Vital Signs Temp Pulse Resp BP Pulse Ox 36.6 C 72 14 150/68 H 93 06/07/16 11:15 06/07/16 11:15 06/07/16 11:15 06/07/16 11:15 06/07/16 11:15 Microbiology 06/04/16 13:40 Gram Stain - Final Foot - Eswab 06/04/16 13:40 Gram Stain - Final Foot - Tissue - Final 06/04/16 13:40 Mycobacterial Smear (ALBINO) - Final Foot - Tissue Laboratory Results 06/07/16 05:20 06/07/16 05:20 06/06/16 06/07/16 06/08/16 06:59 06:59 06:59 Intake Total 750 500 Output Total 950 950 Balance -200 -450 ICD10 Worksheet Patient Problems: Problems Problem Status Onset Benign essential hypertension Active Diabetes mellitus type 2 Active Diabetic neuropathy Active Dyslipidemia Active Hypothyroidism Active Acute renal failure Acute Fever Acute MRSA (methicillin resistant Staphylococcus aureus) Acute 12/23/15 Muscle weakness Acute Pneumonia Acute Severe anemia Acute
[2016-06-07] MEDS: VANCOMYCIN HCL/NORMAL SALINE 250 ML IV SCH (16:42)
--- NOTE | 2016-06-08 12:21 | GDS ---
[f rep st] DISCHARGE SUMMARY CHIEF COMPLAINT: Left heel ulcer. HOSPITAL COURSE: He was admitted after irrigation, debridement and VAC placement for left heel ulce r. He did well in the operative period. Cultures returned positive and he was set up with IV antib iotics. His wound VAC was changed on the day of discharge by the wound care team. He met criteria for disch arge. CONDITION: Stable. DISPOSITION: Stable to [facility]. DIET: Diabetic diet. CONSULTING PHYSICIANS: Infectious Disease, Internal Medicine in Wound Care. DISCHARGE INSTRUCTIONS: He was started back on his regular meds. He was sent out on IV antibiotics , per Infectious Disease. He was sent on wound VAC. This will be changed 1 week after the date of discharge, per the Wound Care recommendations. He follow up outpatient with the Wound Care Clinic a s well as myself in 2 weeks for a wound check. They will call or bring him back to the hospital or clinic if he has any additional problems, worsening of the wound, failure of the VAC, signs of sepsi s, fever, redness, erythema or otherwise concerns. /[id number]/MODL
[2016-06-28] MEDS ORDERED: ERGOCALCIFEROL 50,000 I.UNIT CAP PO SCH (08:00)
[2016-07-04] MEDS ORDERED: ERGOCALCIFEROL 50,000 I.UNIT CAP PO SCH (08:00)
== END 2016-06-07 18:17 | DRG 629 ==
LOC: FSGY 11:32 → F3E 14:12 → INTOOBSV 14:12 → F3E 15:13 → OBSVTOIN 06-05 08:25 → F3E 06-05 13:41
PROVIDERS: ADMIT Orthopaedic Surgery; ATTEND Orthopaedic Surgery
PROC: 0QBM0ZZ Excision of Left Tarsal, Open Approach (ICD-10-PCS; principal; 2016-06-04 13:00)
PROC: 02HV33Z Insertion of Infusion Device into Superior Vena Cava, Percutaneous Approach (ICD-10-PCS; 2016-06-06)
DX: E11.69 Type 2 diabetes mellitus with other specified complication (principal); M86.172 Other acute osteomyelitis, left ankle and foot; E11.621 Type 2 diabetes mellitus with foot ulcer; L97.509 Non-pressure chronic ulcer of other part of unspecified foot with unspecified severity; E03.9 Hypothyroidism, unspecified; I10 Essential (primary) hypertension; Z89.511 Acquired absence of right leg below knee; Z87.891 Personal history of nicotine dependence; I25.10 Atherosclerotic heart disease of native coronary artery without angina pectoris; E78.5 Hyperlipidemia, unspecified; N40.0 Benign prostatic hyperplasia without lower urinary tract symptoms; Z79.4 Long term (current) use of insulin; H40.9 Unspecified glaucoma; N17.9 Acute kidney failure, unspecified; G62.9 Polyneuropathy, unspecified; B95.62 Methicillin resistant Staphylococcus aureus infection as the cause of diseases classified elsewhere; B95.1 Streptococcus, group B, as the cause of diseases classified elsewhere
CPT/HCPCS: 87186-90; 97162-GP; 97166-GO; 97530-GO; 97530-GP; C1751; G8978-GP-CM; G8979-GP-CK; G8987-GO-CL; G8988-GO-CK; J1650; J1815; J2370; J2704; J3010; J3370